=== PATIENT | female | born 1955 | race Caucasian/White ===

== ENCOUNTER → 2016-03-09 | Outpatient (CLI) | payer OTHER ==
--- NOTE | 2016-03-09 09:06 | MR ---
EXAMINATION TYPE: MR lumbar spine wo con DATE OF EXAM: 03/09/2016 8:53 AM COMPARISON: MRI lumbar spine March 30, 2015. Outside lumbar spine x-ray number 19/10/2015 HISTORY: Lumbago per order, pain in back going down rt leg per patient. TECHNIQUE: Multiplanar, multisequence imaging of the lumbar spine is performed without IV contrast. FINDINGS: Sagittal images of the lumbar spine show vertebral body heights and alignment to appear sat isfactory. Multilevel disc desiccation is redemonstrated. There is fairly moderate disc space narrowi ng with vacuum disc phenomenon at L2-L3 and L5-S1 level is redemonstrated. Posterior disc herniations are seen at L2-L3 and L5-S1 levels on sagittal images. Disc herniation L4-L5 level is less prominent versus prior on sagittal images. The conus medullaris is normal in position and signal ending at mid L1 vertebral body level. Vacuum disc phenomenon L3-L4 level is redemonstrated. There is moderate spu rring with heterogeneous increased T1 and T2 signals at L2-L3 level consistent with Modic type II deg enerative change redemonstrated. Additional mild multilevel anterior spurring is present. Axial images at the T12-L1 level redemonstrate mild broad disc bulge mildly effacing anterior thecal sac on axial image 28. There is mild ligamentum flavum hypertrophy bilaterally effacing the posterior lateral thecal sac on same image. No significant change from prior study is seen. Bilateral neural f oramina remain patent. Axial images at the L1-L2 level show mild facet degenerative changes and ligamentum flavum hypertroph y. There is mild broad disc bulge. Spinal canal is preserved and bilateral neural foramina are patent . No significant change from prior study is seen. Axial images at L2-L3 level show moderate broad disc bulge effacing anterior thecal sac. There is mil d facet degenerative changes and ligament flavum hypertrophy. There is moderate right and mild left-s ided neural foraminal narrowing at this level identified. No significant change from prior study is s een. Axial images at the L3-L4 level show mild facet degenerative changes bilaterally and mild broad disc bulge. Spinal canal is fairly well preserved. Bilateral neural foramina are mildly narrowed along the anterior inferior aspect. Axial images at the L4-L5 level show mild to moderate facet degenerative changes bilaterally. Spinal canal is preserved and bilateral neural foramina are patent. Previously visualized disc herniation is improved. Axial images at L5-S1 level show moderate left greater than right facet degenerative changes. There i s right paracentral disc protrusion seen. Spinal canal is preserved. There is moderate left greater t thomas right neural foraminal narrowing. Encroachment on both L5 nerves is difficult to exclude on axial image 4 as well as sagittal image 4 and 12 respectively. This is stable from prior. IMPRESSION: Multilevel degenerative changes in lumbar spine are redemonstrated, note is made of inter cristhian improvement in disc herniation L4-L5 level, other levels are fairly stable with most prominent fi ndings noted at L2-L3 and L5-S1 levels as detailed above.
== END | disposition home or self-care (01) ==
LOC: RADMRIMAIN 08:13
PROVIDERS: ATTEND Orthopaedic Surgery
DX: M51.27 Other intervertebral disc displacement, lumbosacral region (principal); M47.816 Spondylosis without myelopathy or radiculopathy, lumbar region
CPT/HCPCS: 72148

== ENCOUNTER → 2016-03-25 | Outpatient (CLI) | payer OTHER ==
[2016-03-19 14:34] VITALS: BMI 39.4
[2016-03-25 12:45] VITALS: BP 153/92; PULSE 103; RESP 18; TEMP 98
--- NOTE | 2016-03-25 14:54 | P.CONS ---
History of Present Illness - Reason for Consult Consult date: 03/25/16 - History of Present Illness This is the initial consultation for this 60 years old female with a chronic history of severe low back pain,, pain started more than 5 years ago but the intensity of the pain increased significantly over the last 2 years, and it is constant and increases with any activity mostly radiated to the posterior and lateral aspect of her right leg, she denies any motor or sensory deficit, he denies any fever or night sweats, and no change in the bowel movements or urination, she is able to ambulate on her own but this will increase her pain, pain increased with hyperextension and improved with leaning forward, and intensity of the pain interfering with her quality of life and activity of daily livings Past Medical History Past Medical History: GERD/Reflux, Hypertension, Osteoarthritis (OA), Sleep Apnea/CPAP/BIPAP Additional Past Medical History / Comment(s): SURGERY RECTIFIED THE SLEEP APNEA , Pain middle back down rt buttocks and down rt leg History of Any Multi-Drug Resistant Organisms: None Reported Past Surgical History: Back Surgery, Hysterectomy, Joint Replacement, Orthopedic Surgery Additional Past Surgical History / Comment(s): "SLEEP APNEA SURGERY". CERVICAL SURGERY(PLATE). ARTHO OF RIGHT SHOULDER (TENDON RELEASE) AND RIGHT KNEE, total rt hip Past Anesthesia/Blood Transfusion Reactions: No Reported Reaction Past Psychological History: Depression Smoking Status: Current every day smoker Past Alcohol Use History: Occasional Additional Past Alcohol Use History / Comment(s): SMOKED FOR 30 YRS. PPD: 1-3 CIGS/DAY. Past Drug Use History: None Reported - Past Family History Mother Family Medical History: Cancer, Deep Vein Thrombosis (DVT) Additional Family Medical History / Comment(s): colorectal cancer Medications and Allergies Home Medications Medication Instructions Recorded Confirmed Type Aspirin 81 mg PO DAILY 08/11/13 03/25/16 History Citalopram Hydrobromide [CeleXA] 10 mg PO QAM 08/11/13 03/25/16 History Losartan/Hydrochlorothiazide 1 tab PO QAM 08/11/13 03/25/16 History [Hyzaar 100-25 Tablet] Multivitamins, Thera [Multivitamin] 1 tab PO DAILY 08/12/15 03/25/16 History Pantoprazole [Protonix] 40 mg PO QAM 08/12/15 03/25/16 History Vitamin B Complex 1 cap PO DAILY 08/12/15 03/25/16 History Felodipine [Felodipine ER] 10 mg PO QAM 08/20/15 03/25/16 History Ibuprofen [Motrin] 800 mg PO Q8HR PRN 03/25/16 03/25/16 History Allergies Allergy/AdvReac Type Severity Reaction Status Date / Time No Known Allergies Allergy Verified 03/19/16 14:18 Physical Exam Vitals: Vital Signs Temp Pulse Resp BP Pulse Ox 03/25/16 12:30 98.0 F 103 H 18 153/92 103 H Social history : smoker , social ETOH , NO Illegal drugs use . Family history : positive for diabetes and back pain Review of Systems : 1- Constitutional : no chills , no fever , no night sweats , 2- Ears : no ear discharge , no change in hearing 3-Nose, Mouth ,Throat ; no bleeding gums, no sore throat , no epistaxis , 4-Cardiovascular : Denies chest pain, , no orthopnea , no palpitation 5-Respiratory : Denies cough , no dyspnea , no hemoptysis 6-Gastrointestinal :, no change in bowel habits , no coffee- ground emesis . 7-Genitourinary : No hematuria , no discharge , no incontinence, 8-Musculoskeletal : No gait dysfunction , report low back pain , 9- Neurological : no ataxia , no tremor , no sezure , 10-Psychatric , no suicidal ideation no hallucination 11- Endocrine : no cold intolerence , no polyuria , no polydypsia , 12-Hematologic : no easy bleeding , no easy brusing , 13-Allergic / immunology : no angioedema , no wheezing ,no allergic rhinitis 14-Integumentary : no brttle nails , no change hair / nails , no foot/leg ulcers . Physical Examinations : 1-Constitutional : Cooperative , not in acute distress . 2-HEENT : nech ; supple , no Lymphadenopathy , no Thyromegaly , eyes , no icterus, no photophobia . ENT : , normal oropharynx , no Thrush 3- Respiratory : Chest clear to auscultations Bilaterally , no wheezing . 4- Cardiovascular : regular rate and rhythem , S1 , S2 , no S3 , no S4. 5- Gastrointestinal: abdomen soft no tenderness , no organomegally . 6- Genitourinary : Defferred . 7-Integumentary : No cellulitis , no ulcers , normal skin turgor , no cyanotic . 8- neurologic : Cranial nerve II to XII intact , no focal neurological deffecit 9-psychatric : alert , oriented X 3 , appropriate affect , intact judgment and insight . 10-Lymphatic : no Lymphadenopathy. 11- musculoskeltal: normal gait , exams of the cervical spine = motor stregnth in the deltoid and biceps, normal right side , normal Left side . exams of the Lumber spine = moter stegnth lower extremities , thigh and legs 5/5 Right side , 5/5 Left side deep tendon reflexes : normal Knee Jerk , normal ankle Jerk positive lumber facet Loading Test Range of motion of the lumbar spine Flexion 60 degrees, extension 10 degrees strait leg raising test negative bilaterally Fabere test negative bilaterally Sever tenderness over the Sacroiliac joint on the R and L sides Results Comments: MRI lumbar spine done in 03/09/2016 , [facility]= multilevel lumbar facet arthropathy, and multilevel disc protrusion Assessment and Plan Plan: Assessment and plan = - Chronic low back pain secondary to , lumbar spondylosis with facet arthropathy without myelopathy , sacroiliiti The patient was counseled about risk of opioid use, psychological risk associated with opioids discussed with the patient, body mass index and exercise. Patient signed the narcotic agreement , and was orally counseled not to overuse , abuse , divert, or sell medications ,and take them as prescribed only , and the patient was counseled against driving and while you are using the narcotic medication also not to use alcohol or any illicit drugs and the patient verbalized understanding that lack of compliance and could result in failure to renew narcotics prescriptions and possible discharge from the clinic - diagnoses, prognosis, and treatment options including but not limited to physical therapy, surgical interventions, interventional therapies and medication management including narcotics and adjuvant medication were discussed with the patient and all questions answered to the patient's satisfaction. -medication refile =1-Ackworth 7.5/325 dispense 60 2- Motrin 800 mg every 8 hours dispense 90 -procedure= was scheduled patient to have diagnostic medial branch block lumbar area and a L3-4/L4-L5/L5-S1 and if she had a positive result then we will proceed with the radiofrequency ablation of the medial branch lumbar area, and if patient had bleeding resulting we have targeted the other etiology which is sacroiliac joint, then we will proceed with a sacroiliac joint steroid injection bilaterally Time with Patient: Greater than 30
== END | disposition home or self-care (01) ==
LOC: PNWHC3 12:21
PROVIDERS: ATTEND Specialist
DX: M47.816 Spondylosis without myelopathy or radiculopathy, lumbar region (principal); M46.96 Unspecified inflammatory spondylopathy, lumbar region; M46.1 Sacroiliitis, not elsewhere classified; M51.26 Other intervertebral disc displacement, lumbar region; G47.30 Sleep apnea, unspecified; Z99.89 Dependence on other enabling machines and devices; K21.9 Gastro-esophageal reflux disease without esophagitis; I10 Essential (primary) hypertension; M19.90 Unspecified osteoarthritis, unspecified site; F17.200 Nicotine dependence, unspecified, uncomplicated; Z79.899 Other long term (current) drug therapy
CPT/HCPCS: 99211

== ENCOUNTER 2016-05-12 07:55 | Day surgery (SDC) | payer OTHER ==
[2016-05-11 08:36] VITALS: BMI 37.8
[~2016-05-12 07:55] MED LIST: LACTATED RINGERS 1,000 ML IV SCH
[2016-05-12 08:32] VITALS: TEMP 98
[2016-05-12] MEDS ORDERED: MIDAZOLAM 2 MG/2 ML VIAL ONE (08:49)
[2016-05-12] MEDS ORDERED: fentaNYL (PF) 50 MCG/ML 2 ML AMP ONE (08:49)
[2016-05-12] MEDS ORDERED: TRIAMCINOLONE ACETONIDE 40 MG/ML 1 ML VIAL ONE (08:49)
[2016-05-12] MEDS ORDERED: BUPIVACAINE (PF) 0.5% 30 ML VIAL ONE (08:49)
--- NOTE | 2016-05-12 09:21 | P.PCN ---
Date of Procedure: 05/12/16 Procedure(s) Performed: PREOPERATIVE DIAGNOSIS : 1- Lumbar spondylosis with Facet Arthropathy without myelopathy . 2-sacroiliitis POSTOPERATIVE DIAGNOSIS: 1- Lumbar spondylosis with Facet Arthropathy without myelopathy . 2- sacroiliitis PROCEDURE: Diagnostic bilateral L3 -4 , L4 -5 , and L5-S1 medial branch block under fluoroscopy ANESTHESIA: Local with 1% lidocaine; IV sedation with Versed 2 mg and Fentanyl 50 mcg. EBL: Minimal COMPLICATION: None. IV FLUIDS: 100 mL of normal saline. PROCEDURE INDICATION: Chronic low back pain secondary to Facet arthropathy unresponsive to conservative treatment. PROCEDURE DESCRIPTION: the patient was seen and identified in the preop holding area , risks and benefits and possible complications of the procedure and alternative were discussed with the patient, and the patient agreed to proceed with the procedure and signed the consent IV was started and vital signs monitored during the procedure and fluoroscopy was used to maximize the benefit and accuracy of the needle placement, and sedation was given to decrease patient anxiety, patient was taken to the procedure room and placed in prone position vital signs monitored in the back prepped with chlorhexidine X3 then under strict sterile technique using a right oblique fluoroscopy ,the junction of the transverse process and the superior articulating process of the right L3- 4 , L4- 5, and L5-S1 vertebra which corresponding to the fluoroscopy image of the eye of the Talha dog on the block side for the medial branches and subsequently , after local infiltration of skin and subcu tissuies with lidocaine 1% one mL at each level ,then 22- gauge Quincke-type 3.5 inches needles , 3 needle was used , each one of them placed at the junction of the base of the transverse process and the superior articular process at the appropriate level, and the needle was advanced until the periosteum contacted, needle placement confirmed with AP oblique and lateral view and after appropriate needle placement confirmed, and after negative aspiration for heme and CSF and there was no paresthesia 1-1/2 mL of Marcaine 0.5% mixed with 40 mg Kenalog , then half mL injected at each level after negative aspiration the needle subsequently removed and the same procedure repeated for the left side at left side at L3-4, L4- 5 and L5-S1 levels. At the end of the procedure and the needles removed and a bandage applied after the skin was cleaned the cleaning solution patient taken to recovery room in stable condition and monitors in the recovery room for 20-30 minutes and discharged home in stable condition after discharge criteria met and patient will follow up with the pain clinic in 2-4 weeks
[2016-05-12] MEDS ORDERED: IV FLUID CONTINUATION 1,000 ML IV ONE (09:28)
[2016-05-12 09:31] VITALS: RESP 18
--- NOTE | 2016-05-12 09:31 | FL ---
Fluoroscopy INDICATION: Pain FINDINGS: Fluoroscopy time: 7 seconds. Images obtained: 4. IMPRESSIONS: 1. Documentation of fluoroscopy.
[2016-05-12 09:46] VITALS: BP 123/81; PULSE 74
== END 2016-05-12 10:05 | disposition home or self-care (01) ==
LOC: ORPAIN 07:55
PROVIDERS: ATTEND Specialist
DX: G89.29 Other chronic pain (principal); M47.816 Spondylosis without myelopathy or radiculopathy, lumbar region; M46.1 Sacroiliitis, not elsewhere classified; M46.96 Unspecified inflammatory spondylopathy, lumbar region; I10 Essential (primary) hypertension; G47.33 Obstructive sleep apnea (adult) (pediatric)
CPT/HCPCS: 64493; 64494; 64495; 99152; J2250; J3301; J3010

== ENCOUNTER 2016-06-15 09:21 | Day surgery (SDC) | payer OTHER ==
[2016-06-11 14:42] VITALS: BMI 37.8
[2016-06-15 10:15] VITALS: RESP 16; TEMP 98.2
[2016-06-15] MEDS ORDERED: LIDOCAINE 1% 20 ML VIAL (10MG/ML) FOR IV START INTRADERMA ONE (10:28)
[2016-06-15] MEDS ORDERED: LACTATED RINGERS 1,000 ML IV SCH (10:30)
[2016-06-15] MEDS ORDERED: TRIAMCINOLONE ACETONIDE 40 MG/ML 1 ML VIAL ONE (10:34)
[2016-06-15] MEDS ORDERED: fentaNYL (PF) 50 MCG/ML 2 ML AMP ONE (10:34)
[2016-06-15] MEDS ORDERED: BUPIVACAINE (PF) 0.5% 30 ML VIAL ONE (10:34)
[2016-06-15] MEDS ORDERED: MIDAZOLAM 2 MG/2 ML VIAL ONE (10:34)
[2016-06-15] MEDS ORDERED: IV FLUID CONTINUATION 1,000 ML IV ONE (11:06)
--- NOTE | 2016-06-15 11:11 | FL ---
Fluoroscopy INDICATION: Pain FINDINGS: Fluoroscopy time: 23 seconds. Images obtained: 3. IMPRESSIONS: 1. Documentation of fluoroscopy.
--- NOTE | 2016-06-15 11:15 | P.PCN ---
Date of Procedure: 06/15/16 Surgeon: Keyshawn Richter Pathology: none sent Condition: stable Disposition: PACU Description of Procedure: PREOPERATIVE DIAGNOSIS: L3-L4, L4-L5, and L5-S1 spondylosis without myelopathy and facet arthropathy. POSTOPERATIVE DIAGNOSIS: L3-L4, L4-L5, and L5-S1 spondylosis without myelopathy and facet arthropathy. PROCEDURE DESCRIPTION: Patient presents for L3, L4 and L5 diagnostic medial branch blocks under fluoroscopic guidance. The procedure is performed using fluoroscopic guidance during needle placement to assure proper position and maximize safety. ANESTHESIA: Local with 1% lidocaine; conscious sedation EBL: Minimal PROCEDURE INDICATION: Patient with lumbar facet arthropathy signs and symptoms, here for diagnostic medial branch block. Pt does not take any blood thinning medications. Good relief for one week from MBB #1 done in April. PROCEDURE DESCRIPTION: The patient was seen and identified in the preoperative area. Risks, benefits, complications, and alternatives were discussed with the patient (including but not limited to incomplete pain relief, bleeding, infection, nerve damage, and allergies to medications), the patient agreed to proceed with the procedure and signed the consent after all questions were answered. Patient was taken to the OR and time out was completed to verify proper patient, position, laterality of pain, and allergies. Pt was placed in the prone position and a pillow was placed under the abdomen to reduce lumbar lordosis. The lumbosacral area was prepped and draped in the usual sterile fashion. Using oblique fluoroscopy, the eye of the "Talha dog" of right L4 vertebral body, which corresponds to the path of the medial branch originating from the level above, which is L3 in this case, was identified. Subsequently, a 22-gauge 3.5-inch spinal needle was inserted under fluoroscopic guidance toward the eye of the "Talha dog" of the right L4 vertebral body, corresponding to the junction of the superior articular process and the transverse process of the pedicle of the same level. After needle tip confirmation on lateral view and after negative aspiration for CSF and blood and without paresthesias, 1 mL of a 6 ml solution of 0.5% preservative-free bupivacaine and 40 mg Kenalog was injected. Subsequently the needle was withdrawn intact and the same procedure was repeated for the right L4, right L5, left L3, left L4, and left L5 medial branches which together with right L3 medial branch correspond to the sensory innervation of the bilateral L3-L4, L4-L5, and L5-S1 facet joints. Needle was withdrawn intact after each injection. At the end of the procedure, the skin was cleansed and bandages were applied. COMPLICATIONS: None. DISPOSITION/PLAN: The patient taken to the recovery area after the procedure in a stable condition for observation. Patient was reexamined prior to discharge and there were no issues. Patient was discharged home, accompanied by an adult, after meeting discharged criteria. Discharge instructions were give to the patient by the staff. Patient was specifically instructed not to drive today and to rest for the rest of the day. Patient will follow up for right lumbar RFA in 4-6 weeks if she gets good relief from this procedure. Consider using longer needles for RFA due to patient's large body habitus even though MBB was accomplished using 3.5-inch needles.
[2016-06-15 11:26] VITALS: BP 137/80; PULSE 75
== END 2016-06-15 11:55 | disposition home or self-care (01) ==
LOC: ORPAIN 09:21
PROVIDERS: ATTEND Anesthesiology
DX: G89.29 Other chronic pain (principal); M47.816 Spondylosis without myelopathy or radiculopathy, lumbar region; M46.96 Unspecified inflammatory spondylopathy, lumbar region; I10 Essential (primary) hypertension; F32.9 Major depressive disorder, single episode, unspecified; K21.9 Gastro-esophageal reflux disease without esophagitis; Z79.891 Long term (current) use of opiate analgesic; Z79.899 Other long term (current) drug therapy
CPT/HCPCS: 64493; 64494; 64495; 99152; J2250; J3301; J3010

== ENCOUNTER → 2016-07-17 | Outpatient (CLI) | payer OTHER ==
--- NOTE | 2016-07-21 09:39 | MM ---
Reason for exam: screening (asymptomatic). Last mammogram was performed 2 years and 6 months ago. History: Patient is postmenopausal. Benign excisional biopsy of the left breast. Physical Findings: A clinical breast exam by your physician is recommended on an annual basis and results should be correlated with mammographic findings. MG 3D Screening Mammo W/Cad Bilateral CC and MLO view(s) were taken. Prior study comparison: January 05, 2014, bilateral MG screening mammo w CAD. There are scattered fibroglandular densities. Scattered benign calcifications bilateral. No significant changes when compared with prior studies. ASSESSMENT: Benign, BI-RAD 2 RECOMMENDATION: Routine screening mammogram of both breasts in 1 year.
== END | disposition home or self-care (01) ==
LOC: RADMAMWWP 11:15
PROVIDERS: ATTEND Family Medicine
DX: Z12.31 Encounter for screening mammogram for malignant neoplasm of breast (principal)
CPT/HCPCS: 77063; G0202

== ENCOUNTER 2016-07-23 11:52 | Day surgery (SDC) | payer OTHER ==
[2016-07-20 11:38] VITALS: BMI 37.8
[2016-07-23 12:07] VITALS: TEMP 97.2
[2016-07-23] MEDS ORDERED: LIDOCAINE 1% 20 ML VIAL (10MG/ML) FOR IV START INTRADERMA ONE (12:08)
[2016-07-23] MEDS ORDERED: LACTATED RINGERS 1,000 ML IV ONE (12:08)
[2016-07-23] MEDS ORDERED: BUPIVACAINE (PF) 0.5% 30 ML VIAL ONE (12:26)
[2016-07-23] MEDS ORDERED: MIDAZOLAM 2 MG/2 ML VIAL ONE (12:26)
[2016-07-23] MEDS ORDERED: TRIAMCINOLONE ACETONIDE 40 MG/ML 1 ML VIAL ONE (12:26)
[2016-07-23] MEDS ORDERED: fentaNYL (PF) 50 MCG/ML 2 ML AMP ONE (12:26)
--- NOTE | 2016-07-23 13:09 | P.PCN ---
Date of Procedure: 07/23/16 Preoperative Diagnosis: Lumbar spondylosis without myelopathy Morbid obesity Postoperative Diagnosis: Same as above Procedure(s) Performed: Implants: Anesthesia: other (Moderate sedation) Surgeon: Mello Gallagher Pathology: none sent Condition: stable Disposition: PACU Indications for Procedure: Operative Findings: Description of Procedure: The patient was seen in the preop holding area consent was obtained then she was brought into the procedure room and placed in prone position. Skin was prepped with ChloraPrep and draped in a sterile manner. Lidocaine 1% was used to numb the skin up at the target points that were chosen as follows: For the L5 -S1 level which corresponds to the dorsal ramus of L5 the target point was the superior medial aspect of the sacral ala on the right side of the spine on the AP view of fluoroscopy. For the L2-L3 and L4 medial branches the target points were the connection between the transverse process and the superior to go process of L3-L4 and L5 vertebra respectively on the right oblique view of fluoroscopy. I used 18-gauge 100 mm in length with 10 mm curved active tip radiofrequency ablation needles for this procedure. AP, oblique, and lateral views of fluoroscopy were obtained to verify needle tipposition then motor stimulation showed only local twitches of these needles with no radiation of twitching to the right lower extremity. After that I prepared a solution of 3 MLS Marcaine 0.5% +40 mg of Kenalog. 1 mL of the solution was given in each needle. After that radiofrequency ablation started for 90 seconds at 80C, the needles then were withdrawn by 1 or 2 mm and the bevels turned 180 another session of ablation was then started for 90 seconds at 80C. Patient tolerated procedure well.
[2016-07-23] MEDS ORDERED: IV FLUID CONTINUATION 850 ML IV ONE (13:23)
[2016-07-23 13:29] VITALS: RESP 18
--- NOTE | 2016-07-23 13:32 | FL ---
EXAMINATION TYPE: FL guided pain mgmt statistic DATE OF EXAM: 07/23/2016 1:03 PM HISTORY: Pain 48 SEC FLUORO, 3 IMAGES SCANNED
[2016-07-23 13:38] VITALS: BP 127/77; PULSE 75
== END 2016-07-23 14:01 | disposition home or self-care (01) ==
LOC: ORPAIN 11:52
PROVIDERS: ATTEND Anesthesiology
DX: M47.816 Spondylosis without myelopathy or radiculopathy, lumbar region (principal); E66.01 Morbid (severe) obesity due to excess calories; Z68.37 Body mass index [BMI] 37.0-37.9, adult
CPT/HCPCS: 64635; 64636; 99152; 99153; J2250; J3301; J3010

== ENCOUNTER 2016-09-21 09:15 | Day surgery (SDC) | payer OTHER ==
[2016-09-16 11:50] VITALS: BMI 37.8
[2016-09-21 09:47] VITALS: RESP 16; TEMP 97.2
[2016-09-21] MEDS ORDERED: LIDOCAINE 1% 20 ML VIAL (10MG/ML) FOR IV START SQ ONE (09:58)
--- NOTE | 2016-09-21 10:47 | P.PCN ---
Date of Procedure: 09/21/16 Preoperative Diagnosis: Lumbar spondylosis without myelopathy Postoperative Diagnosis: Same as above Procedure(s) Performed: Left lumbar medial branch radiofrequency ablation under fluoroscopic guidance Implants: Anesthesia: other (Moderate sedation with IV fentanyl and Versed) Surgeon: Mello Gallagher Pathology: none sent Condition: stable Disposition: PACU Indications for Procedure: Operative Findings: Description of Procedure: The patient was seen in the preop holding area consent was obtained then she was brought into the procedure room and placed in prone position. Skin was prepped with ChloraPrep and draped in a sterile manner. Lidocaine 1% was used to numb the skin up at the target points that were chosen as follows: For the L5 -S1 level which corresponds to the dorsal ramus of L5 the target point was at the superior medial aspect of the sacral ala on the left side of the spine on the AP view of fluoroscopy, and for the L2, L3, and L4 medial branches the target points were the connection between the transverse process and the superior articular process of 3, L4, and L4 vertebra respectively on the left oblique view of fluoroscopy. I used 150 mm in length 18-gauge residency ablation needles for this procedure with 10 mm curved active tips. I tried to placed the active tips as parallel as possible to the medial branches tracks by going in a superior medial direction. AP, oblique, and lateral views of fluoroscopy were obtained to verify needle tip position then motor stimulation showed only local twitches of these needles with no radiation of twitching to the left lower extremity after that I prepared a solution of 3 MLS Marcaine 0.5 % +40 mg of Kenalog and 1 mL of the solution was given in each needle. Then radiofrequency ablation started for 90 seconds at 80C and after the first session was done the needles were withdrawn by 1 or 2 mm and the bevels were turned 180 and another session of ablation was started for 90 seconds at 80C. Patient tolerated procedure well.
[2016-09-21] MEDS ORDERED: IV FLUID CONTINUATION 1,000 ML IV ONE ×2 (10:51)
--- NOTE | 2016-09-21 10:51 | FL ---
EXAMINATION TYPE: FL guided pain mgmt statistic DATE OF EXAM: 09/21/2016 CLINICAL HISTORY: Low back pain. TECHNIQUE: Fluoroscopy. COMPARISON: None. FINDINGS: Fluoroscopic guidance was provided during pain relief procedure performed by Dr. Gallagher . A total of 38 seconds of fluoroscopic time was utilized during the procedure and two spot images ar e acquired. Images acquired shows needle localization at multiple levels in the lower lumbar spine a nd upper sacrum. IMPRESSION: As Above.
[2016-09-21 11:10] VITALS: BP 129/83; PULSE 75
== END 2016-09-21 11:24 | disposition home or self-care (01) ==
LOC: ORPAIN 09:15
PROVIDERS: ATTEND Anesthesiology
DX: M47.816 Spondylosis without myelopathy or radiculopathy, lumbar region (principal); I10 Essential (primary) hypertension
CPT/HCPCS: 64635; 64636; 99152; 99153; J2250; J3301; J3010

== ENCOUNTER → 2016-11-18 | Outpatient (CLI) | payer OTHER ==
[2016-11-18 14:47] VITALS: BP 140/76; PULSE 93; RESP 20
--- NOTE | 2016-11-18 14:54 | P.PN ---
Progress Note - Text Patient returns for followup for chronic back pain with radiation to hips and legs. Patient recently underwent bilateral lumbar RFA, which has provided some relief for interval since procedure, but patient still has numbness/tingling in bilateral lower extremities, worst in RLE in lateral aspect of lower leg and ankle. Patient continues on occasional [place] pill for pain with good relief. Patient denies adverse drug effects from medications. Today, pt denies new- onset weakness, bowel/bladder incontinence, or any other signs or symptoms of cauda equina syndrome. There are no signs of acute intoxication, and no indications of medication diversion or overuse. In addition to above, 13-point review of systems is also negative for chest pain , shortness of breath, changes in vision, changes in hearing, new onset weakness , abdominal pain, diarrhea, extreme fatigue, malaise, fever, skin changes, homicidal or suicidal ideation, or bowel or bladder incontinence. Vital Signs: Reviewed in EMR Gen: WDWN, AAOx3, NAD HEENT: NCAT, EOMI, hearing grossly normal Pulm: resp unlabored Abd: soft, NT, ND Neck: supple, trachea midline ROM in flexion lumbar spine: full ROM in extension lumbar spine: reduced Lumbar paravertebral tenderness: + Facet loading: + L > R SI joint tenderness: + L > R Jamie's test: + L > R Straight leg raise: + RLE at 10 degrees Neuro: CN II-XII grossly intact, muscle strength lower extremities PRESERVED Imaging: Reviewed in EMR Assessment: 1. lumbar spondylosis without myelopathy 2. SIJ dysfunction 3. chronic pain syndrome 4. lumbar neural foraminal stenosis Plan: 1. Explanation: Opioid and psychological risk scores were reviewed. Diagnoses , prognoses, and multiple treatment options including but not limited to physical therapy, interventional therapies, adjuvant medical therapies, narcotic medication therapies, and surgery were discussed with the patient and all questions were answered to the patient's satisfaction. 2. Opioid agreement: Patient has previously signed narcotic agreement, and was orally counseled to not overuse, abuse, divert, or cell medications, and to take them as prescribed by only 1 healthcare provider. The patient was also counseled to store opioid medications in a safe and preferably locked location. Patient was also counseled against driving or operating heavy equipment while using narcotic medications and also to not use alcohol or any illicit or recreational drugs. The patient verbalized understanding that lack of compliance with any of the above and likely result in failure to renew narcotic prescriptions, possible discharge from the clinic, and possible legal ramifications thereafter if indicated. 3. Counseling: The patient was counseled extensively on BODY MASS INDEX, EXERCISE. Specifically, the patient was instructed regarding the importance of weight control, and exercise in the context of both chronic pain and overall health. 4. Procedures: LESI series L5-S1 right paramedian if possible 5. Consultations: None 6. Investigations: None 7. Medications: [place] 7.5/325 #60 with no refill (two months' supply); Motrin 800 mg #60 with one refill 8. Disposition: f/u for re-eval in 8 weeks PQRS measures: 1-Patient's medications are documented in the chart. 2-Tobacco use is negative 3-Patient has not had a pneumococcal vaccine. 4-Advanced care planning discussed, patient unable to give. 5-Opioid contract signed with the patient. 6-Pain positive, follow-up visit or procedure scheduled 7-Patient's blood pressure measured and documented, and patient will follow up with the primary care due to hypertension. 8-Patient's weight was measured, and body mass index ABOVE the normal limits, and counseling was done. Patient instructed to follow up with PCP. 9-Patient WAS NOT identified as an unhealthy alcohol user.
== END | disposition home or self-care (01) ==
LOC: PNWHC3 14:13
PROVIDERS: ATTEND Anesthesiology
DX: M99.73 Connective tissue and disc stenosis of intervertebral foramina of lumbar region (principal); M47.816 Spondylosis without myelopathy or radiculopathy, lumbar region; M53.3 Sacrococcygeal disorders, not elsewhere classified; G89.4 Chronic pain syndrome
CPT/HCPCS: 99211

== ENCOUNTER 2016-12-10 08:39 | Day surgery (SDC) | payer OTHER ==
[2016-12-07 13:52] VITALS: BMI 39.4
[2016-12-10 09:24] VITALS: TEMP 98
--- NOTE | 2016-12-10 10:43 | P.PCN ---
Date of Procedure: 12/10/16 Procedure(s) Performed: PREOPERATIVE DIAGNOSIS: 1- Lumbar foraminal stenosis 2-Lumbar spondylosis with facet arthropathy without myelopathy. POSTOPERATIVE DIAGNOSIS: 1-Lumber foraminal stenosis 2-Lumbar spondylosis with Facet arthropathy without myelopathy. PROCEDURE. 1. Lumbar epidural steroid injection under fluoroscopic guidance at the L5-S1 level. 2. Lumbar epidurogram. ANESTHESIA: Local with 1% lidocaine 3 ml and IV sedation with Versed 2 mg , and fentanyle 100 Mcg EBL: Minimal PROCEDURE INDICATION: The patient with low back pain and radiculitis symptoms unresponsive to conservative treatment. Fluoroscopy was used to optimize visualization of the needle placement and to maximize safety. PROCEDURE DESCRIPTION / TECHNIQUE: The patient was seen and identified in the preoperative area. Risks, benefits , complications including but not limited to infections ,bleeding ,allergic reaction to the medications ,nerve damage and not complete pain releife , and alternatives were discussed with the patient. The patient agreed to proceed with the procedure and signed the consent. IV was started, and vital signs were stable. Patient was taken to the OR and time out was completed. The patient was placed in the prone position on procedure table and a pillow was placed under the abdomen to reduce lumbar lordosis. The lumbosacral area was prepped and draped in the usual sterile fashion.ere closely monitored during the procedure. Conscious sedation was used during the procedure to decrease patients anxiety. Vital signs was monitered during the entire procedure. Using anterior-posterior fluoroscopy, the L5-S1 interlaminar space was identified and the skin over this site was marked and then infiltrated with 1% lidocaine subcutaneously. Subsequently, a 18 -gauge Tuohy epidural needle was inserted and advanced toward the epidural space using the ``Loss of resistance technique and guided by AP and lateral fluoroscopy. The correct needle position in the epidural space was verified with the injection of 2 mL of the water soluble contrast dye Omnipaque 180 contrast and observing an excellent epidurogram with the epidural spread of the dye, after negative aspiration for blood and CSF and in the absence of paresthesias. Again after negative aspiration, a 6 ml mixture containing 20 mg of Dexamethasone and 2 ml of preservative free Normal Saline, and 2 ml of preservative free lidocaine 1% solution was injected and a washout of epidurogram was seen. Needle was withdrawn intact, skin was cleansed, and bandages were applied. COMPLICATIONS: None DISPOSITION / PLANS: The patient was placed in a supine position and transferred to the recovery area in a stable condition for observation. There was no evidence of lower extremity motor or sensory deficit after the procedure. Patient was discharged from the recovery room after meeting discharge criteria. Home discharge instructions were given to the patient by the staff. The patient was reexamined prior to discharge. The patient will schedule a follow up in the clinic in 2-4 weeks.
[2016-12-10] MEDS ORDERED: IV FLUID CONTINUATION 1,000 ML IV ONE (10:49)
[2016-12-10 10:51] VITALS: PULSE 75
--- NOTE | 2016-12-10 11:00 | FL ---
EXAMINATION TYPE: FL guided pain mgmt statistic DATE OF EXAM: 12/10/2016 COMPARISON: NONE HISTORY: Back pain TECHNIQUE: Fluoroscopy. FINDINGS/IMPRESSION: Fluoroscopic guidance was provided during procedure performed by Dr. Ortiz. A total of 6 seconds of fluoroscopic time was utilized during the procedure and 1 spot image was acq uired.
[2016-12-10 11:07] VITALS: BP 131/84; RESP 18
== END 2016-12-10 11:22 | disposition home or self-care (01) ==
LOC: ORPAIN 08:39
DX: M48.061 Spinal stenosis, lumbar region without neurogenic claudication (principal); M47.26 Other spondylosis with radiculopathy, lumbar region; M46.96 Unspecified inflammatory spondylopathy, lumbar region
CPT/HCPCS: 62323; J2250; J1100; Q9965; J3010; 99152

== ENCOUNTER 2017-01-14 09:48 | Day surgery (SDC) | payer OTHER ==
[2017-01-11 17:20] VITALS: BMI 39.4
[2017-01-14 10:39] VITALS: TEMP 99.1
[2017-01-14] MEDS ORDERED: LIDOCAINE 1% 20 ML VIAL (10MG/ML) FOR IV START INTRADERMA ONE (10:39)
--- NOTE | 2017-01-14 10:57 | P.PCN ---
Date of Procedure: 01/14/17 Procedure(s) Performed: PREOPERATIVE DIAGNOSIS: 1- Lumbar Degenerative Disc Diseases 2-Lumbar spondylosis with Facet arthropathy without myelopathy. 3-lumbar herniated disc disease POSTOPERATIVE DIAGNOSIS: 1-Lumber Degenerative Disc Diseases 2-Lumbar spondylosis with Facet arthropathy without myelopathy. 3-lumbar herniated disc disease PROCEDURE 1. Lumbar epidural steroid injection under fluoroscopic guidance at the L5-S1 level. ( left paramedian approach ) 2. Lumbar epidurogram. ANESTHESIA: Local with 1% lidocaine 3 ml and IV sedation with Versed 2 mg , and fentanyle 100 Mcg EBL: Minimal PROCEDURE INDICATION: The patient with low back pain and radiculitis symptoms unresponsive to conservative treatment. Fluoroscopy was used to optimize visualization of the needle placement and to maximize safety. PROCEDURE DESCRIPTION / TECHNIQUE: The patient was seen and identified in the preoperative area. Risks, benefits , complications including but not limited to infections ,bleeding ,allergic reaction to the medications ,nerve damage and not complete pain releife , and alternatives were discussed with the patient. The patient agreed to proceed with the procedure and signed the consent. IV was started, and vital signs were stable. Patient was taken to the OR and time out was completed. The patient was placed in the prone position on procedure table and a pillow was placed under the abdomen to reduce lumbar lordosis. The lumbosacral area was prepped and draped in the usual sterile fashion.ere closely monitored during the procedure. Conscious sedation was used during the procedure to decrease patients anxiety. Vital signs was monitered during the entire procedure. Using anterior-posterior fluoroscopy, the L5-S1 interlaminar space was identified and the skin over this site was marked and then infiltrated with 1% lidocaine subcutaneously. Subsequently, a 20-gauge Tuohy epidural needle was inserted and advanced toward the epidural space using the ``Loss of resistance technique and guided by AP and lateral fluoroscopy. The correct needle position in the epidural space was verified with the injection of 2 mL of the water soluble contrast dye Omnipaque 180 contrast and observing an excellent epidurogram with the epidural spread of the dye, after negative aspiration for blood and CSF and in the absence of paresthesias. Again after negative aspiration, a 6 ml mixture containing 20 mg of Dexamethasone and 2 ml of preservative free Normal Saline, and 2 ml of preservative free lidocaine 1% solution was injected and a washout of epidurogram was seen. Needle was withdrawn intact, skin was cleansed, and bandages were applied. COMPLICATIONS: None DISPOSITION / PLANS: The patient was placed in a supine position and transferred to the recovery area in a stable condition for observation. There was no evidence of lower extremity motor or sensory deficit after the procedure. Patient was discharged from the recovery room after meeting discharge criteria. Home discharge instructions were given to the patient by the staff. The patient was reexamined prior to discharge. The patient will schedule a follow up in the clinic in 2-4 weeks.
--- NOTE | 2017-01-14 11:10 | FL ---
Fluoroscopy INDICATION: Pain FINDINGS: Fluoroscopy time: 3 seconds. Images obtained: 1. IMPRESSIONS: 1. Documentation of fluoroscopy.
[2017-01-14] MEDS ORDERED: IV FLUID CONTINUATION 1,000 ML IV ONE (11:15)
[2017-01-14 11:22] VITALS: RESP 18
[2017-01-14 11:37] VITALS: BP 117/71; PULSE 84
== END 2017-01-14 11:49 | disposition home or self-care (01) ==
LOC: ORPAIN 09:48
PROVIDERS: ATTEND Specialist
DX: M51.36 Other intervertebral disc degeneration, lumbar region (principal); M47.816 Spondylosis without myelopathy or radiculopathy, lumbar region; M46.96 Unspecified inflammatory spondylopathy, lumbar region; M51.16 Intervertebral disc disorders with radiculopathy, lumbar region; I10 Essential (primary) hypertension; K21.9 Gastro-esophageal reflux disease without esophagitis
CPT/HCPCS: 62323; J2250; J1100; Q9965; J3010

== ENCOUNTER → 2017-02-15 | Outpatient (CLI) | payer OTHER ==
[2017-02-15 14:04] VITALS: BP 134/96; RESP 18
--- NOTE | 2017-02-15 14:26 | P.PN ---
Progress Note - Text Progress Note Date: 02/15/17 This is a 61-year-old female with lower back pain and radiation to both legs more towards the left side down to the left ankle with numbness and tingling in no specific radicular distribution. The patient's pain today is 2 out of 6 and it has improved after 2 lumbar epidural steroid injections. Patient is planning to leave to [place] a few weeks and she would like to have another injection in her lower back. She is alert oriented 3 in no apparent distress. She denies any changes or new symptoms since last time we saw her. He scores her pain today as 2 out of 10 her pain gets worse when she stands up for a short period of time. She uses [place] sparingly and the last prescription for 60 pills of [place] lasted her for 3 months. She does not show any drug-seeking behavior and she does not show any oversedation symptoms. Today I will schedule the patient to have lumbar epidural steroid injection under fluoroscopic guidance and also give her prescription for [place] 10 mg #60 pills.
== END | disposition home or self-care (01) ==
LOC: PNWHC3 13:27
PROVIDERS: ATTEND Anesthesiology
DX: M54.41 Lumbago with sciatica, right side (principal); M54.42 Lumbago with sciatica, left side; R20.0 Anesthesia of skin; R20.2 Paresthesia of skin; Z79.891 Long term (current) use of opiate analgesic
CPT/HCPCS: 99211

== ENCOUNTER → 2017-05-11 | Outpatient (CLI) | payer OTHER ==
[2017-05-11 12:25] VITALS: BP 148/83; PULSE 97; RESP 18
--- NOTE | 2017-05-11 12:49 | P.PN ---
Subjective Progress Note Date: 05/11/17 Principal diagnosis: Lumbar spondylosis, radiculopathy, right hip pain The patient is a 61-year-old lady who is morbidly obese with increasing lower back and right hip pain since her hip replacement. I will also [facility] surgeon egan to our clinic for pain management after he ruled out any complications from her hip surgery. The patient denies any bowel or bladder dysfunction. The pain prevents her from falling asleep but once she is asleep but does not wake her up at night. She denies any weight loss recently. By physical exam she is alert oriented 3 in no apparent distress however she became emotional when she was picking to me what her pain Straight leg raising test negative bilaterally She has significant tenderness on the lumbar paravertebral area more on the right side than the left side, mild tenderness around the right sacroiliac joint , Neuro exam of the lower extremities showed normal and symmetrical muscle strength absent right knee reflex and absent ankle reflexes bilaterally and normal left knee reflex. The patient has lumbar stenosis to and it might be contributing to her pain. I think the patient may benefit from getting lumbar epidural steroid injection at the L through L3 or L3 4 levels in the right paramedian approach and also she might be a candidate for lumbar medial branch block in the future. The patient uses [place] 7.5 mg sparingly usually once a day. I'll give her prescription for [place] 7.5 mg #60. Objective - Vital Signs Vital signs: Vital Signs Temp Pulse 97 05/11/17 12:08 Resp 18 05/11/17 12:08 BP 148/83 05/11/17 12:08 Pulse Ox 96 05/11/17 12:08 Intake & Output 05/10/17 05/11/17 05/11/17 18:59 06:59 18:59 Weight 104.326 kg Assessment and Plan Plan: Morbid obesity Right hip pain status post hip replacement Lumbar spondylosis without myelopathy Right lumbar radiculopathy Lumbar stenosis I will schedule the patient to have lumbar epidural steroid injection under fluoroscopic guidance at the L2-3 or L 3-4 levels in the right paramedian approach. [place] 7.5 mg will be continued I will give her 60 pills.
== END | disposition home or self-care (01) ==
LOC: PNWHC3 11:59
PROVIDERS: ATTEND Anesthesiology
DX: M48.061 Spinal stenosis, lumbar region without neurogenic claudication (principal); M47.26 Other spondylosis with radiculopathy, lumbar region; M25.551 Pain in right hip; E66.01 Morbid (severe) obesity due to excess calories; Z96.641 Presence of right artificial hip joint; Z79.891 Long term (current) use of opiate analgesic; Z68.39 Body mass index [BMI] 39.0-39.9, adult
CPT/HCPCS: 99211

== ENCOUNTER 2017-06-07 06:38 | Day surgery (SDC) | payer OTHER ==
[2017-06-02 09:05] VITALS: BMI 39.4
[2017-06-07 07:14] VITALS: RESP 18; TEMP 98
[2017-06-07] MEDS ORDERED: LIDOCAINE 1% 20 ML VIAL (10MG/ML) FOR IV START INTRADERMA ONE (07:14)
[2017-06-07] MEDS ORDERED: LACTATED RINGERS 1,000 ML IV ONE (07:14)
--- NOTE | 2017-06-07 08:06 | P.PCN ---
Date of Procedure: 06/07/17 Preoperative Diagnosis: Lumbar Radiculopathy Postoperative Diagnosis: Lumbar Radiculopathy Surgeon: William Ashby Condition: stable Disposition: PACU Description of Procedure: PREOPERATIVE DIAGNOSIS: 1- Lumbar Degenerative Disc Diseases 2-Lumbar spondylosis with Facet arthropathy without myelopathy. 3-lumbar herniated disc disease POSTOPERATIVE DIAGNOSIS: 1-Lumber Degenerative Disc Diseases 2-Lumbar spondylosis with Facet arthropathy without myelopathy. 3-lumbar herniated disc disease PROCEDURE 1. Lumbar epidural steroid injection under fluoroscopic guidance at the L5-S1 level. ( Right paramedian approach ) 2. Lumbar epidurogram. ANESTHESIA: Local with 1% lidocaine 3 ml and IV sedation with Versed 2 mg , and fentanyle 100 Mcg EBL: Minimal PROCEDURE INDICATION: The patient with low back pain and radiculitis symptoms unresponsive to conservative treatment. Fluoroscopy was used to optimize visualization of the needle placement and to maximize safety. PROCEDURE DESCRIPTION / TECHNIQUE: The patient was seen and identified in the preoperative area. Risks, benefits , complications including but not limited to infections ,bleeding ,allergic reaction to the medications ,nerve damage and not complete pain releife , and alternatives were discussed with the patient. The patient agreed to proceed with the procedure and signed the consent. IV was started, and vital signs were stable. Patient was taken to the OR and time out was completed. The patient was placed in the prone position on procedure table and a pillow was placed under the abdomen to reduce lumbar lordosis. The lumbosacral area was prepped and draped in the usual sterile fashion.ere closely monitored during the procedure. Conscious sedation was used during the procedure to decrease patients anxiety. Vital signs was monitered during the entire procedure. Using anterior-posterior fluoroscopy, the L5-S1 interlaminar space was identified and the skin over this site was marked and then infiltrated with 1% lidocaine subcutaneously. Subsequently, a 20-gauge Tuohy epidural needle was inserted and advanced toward the epidural space using the ``Loss of resistance technique and guided by AP and lateral fluoroscopy. The correct needle position in the epidural space was verified with the injection of 2 mL of the water soluble contrast dye Omnipaque 180 contrast and observing an excellent epidurogram with the epidural spread of the dye, after negative aspiration for blood and CSF and in the absence of paresthesias. Again after negative aspiration, a 6 ml mixture containing 40 mg Kenalog and 4 ml of preservative free Normal Saline was injected and a washout of epidurogram was seen. Needle was withdrawn intact, skin was cleansed, and bandages were applied. COMPLICATIONS: None DISPOSITION / PLANS: The patient was placed in a supine position and transferred to the recovery area in a stable condition for observation. There was no evidence of lower extremity motor or sensory deficit after the procedure. Patient was discharged from the recovery room after meeting discharge criteria. Home discharge instructions were given to the patient by the staff. The patient was reexamined prior to discharge. The patient will schedule a follow up in the clinic in 2-4 weeks.
[2017-06-07] MEDS ORDERED: IV FLUID CONTINUATION 700 ML IV ONE (08:38)
[2017-06-07 09:02] VITALS: BP 130/95; PULSE 83
--- NOTE | 2017-06-07 10:39 | FL ---
Fluoroscopy HISTORY: Pain 10 seconds fluoroscopy time supplied to the referring clinician. 2 intraoperative C-arm images docum ent the procedure. See dictated report from anesthesia.
== END 2017-06-07 09:21 | disposition home or self-care (01) ==
LOC: ORPAIN 06:38
PROVIDERS: ATTEND Anesthesiology
DX: M51.16 Intervertebral disc disorders with radiculopathy, lumbar region (principal); M47.816 Spondylosis without myelopathy or radiculopathy, lumbar region
CPT/HCPCS: 62323; J2250; J3301; J3010; Q9966

== ENCOUNTER → 2017-07-05 | Outpatient (CLI) | payer OTHER ==
[2017-07-05 12:11] VITALS: BP 117/72; PULSE 91; RESP 16
--- NOTE | 2017-07-05 12:43 | P.PN ---
Progress Note - Text Progress Note Date: 07/05/17 Patient returns for followup for chronic back pain with radiation to hips and legs. Patient recently underwent LESI x 1, which improved RLE pain and numbness almost completely for 11-12 days. Patient continues on occasional [place] pill for pain with good relief. Patient denies adverse drug effects from medications. Today, pt denies new-onset weakness, bowel/bladder incontinence, or any other signs or symptoms of cauda equina syndrome. There are no signs of acute intoxication, and no indications of medication diversion or overuse. In addition to above, 13-point review of systems is also negative for chest pain , shortness of breath, changes in vision, changes in hearing, new onset weakness , abdominal pain, diarrhea, extreme fatigue, malaise, fever, skin changes, homicidal or suicidal ideation, or bowel or bladder incontinence. Vital Signs: Reviewed in EMR Gen: WDWN, AAOx3, NAD HEENT: NCAT, EOMI, hearing grossly normal Pulm: resp unlabored Abd: soft, NT, ND Neck: supple, trachea midline ROM in flexion lumbar spine: full ROM in extension lumbar spine: reduced Lumbar paravertebral tenderness: + Facet loading: + L > R SI joint tenderness: + R > L Jamie's test: +R > L Straight leg raise: + RLE at 5 degrees Neuro: CN II-XII grossly intact, muscle strength lower extremities PRESERVED Imaging: Reviewed in EMR Assessment: 1. lumbar spondylosis without myelopathy 2. SIJ dysfunction 3. chronic pain syndrome 4. lumbar neural foraminal stenosis Plan: 1. Explanation: Opioid and psychological risk scores were reviewed. Diagnoses , prognoses, and multiple treatment options including but not limited to physical therapy, interventional therapies, adjuvant medical therapies, narcotic medication therapies, and surgery were discussed with the patient and all questions were answered to the patient's satisfaction. 2. Opioid agreement: Patient has previously signed narcotic agreement, and was orally counseled to not overuse, abuse, divert, or cell medications, and to take them as prescribed by only 1 healthcare provider. The patient was also counseled to store opioid medications in a safe and preferably locked location. Patient was also counseled against driving or operating heavy equipment while using narcotic medications and also to not use alcohol or any illicit or recreational drugs. The patient verbalized understanding that lack of compliance with any of the above and likely result in failure to renew narcotic prescriptions, possible discharge from the clinic, and possible legal ramifications thereafter if indicated. 3. Counseling: The patient was counseled extensively on BODY MASS INDEX, EXERCISE. Specifically, the patient was instructed regarding the importance of weight control, and exercise in the context of both chronic pain and overall health. 4. Procedures: LESI series L5-S1 RIGHT paramedian if possible 5. Consultations: None 6. Investigations: UDS today 7. Medications: [place] 7.5/325 #60 (three months' supply for this patient) 8. MME/day: < 10 9. Disposition: f/u for procedure as scheduled; plan to complete full series of three LESIs as patient had complete relief of right leg pain after first procedure. If relief still limited, can consider SCS in future. PQRS measures: 1-Patient's medications are documented in the chart. 2-Tobacco use is negative 3-Patient has not had a pneumococcal vaccine. 4-Advanced care planning discussed, patient unable to give. 5-Opioid contract signed with the patient. 6-Pain positive, follow-up visit or procedure scheduled 7-Patient's blood pressure measured and documented, and patient will follow up with the primary care due to hypertension. 8-Patient's weight was measured, and body mass index ABOVE the normal limits, and counseling was done. Patient instructed to follow up with PCP. 9-Patient WAS NOT identified as an unhealthy alcohol user.
== END | disposition home or self-care (01) ==
LOC: PNWHC3 11:47
PROVIDERS: ATTEND Anesthesiology
DX: G89.4 Chronic pain syndrome (principal); M99.73 Connective tissue and disc stenosis of intervertebral foramina of lumbar region; M47.816 Spondylosis without myelopathy or radiculopathy, lumbar region; M53.3 Sacrococcygeal disorders, not elsewhere classified; Z79.899 Other long term (current) drug therapy
CPT/HCPCS: 80307; 80356; 80364; 99211

== ENCOUNTER → 2017-08-30 | Outpatient (CLI) | payer OTHER ==
[2017-08-30 13:24] VITALS: BP 132/79; PULSE 74; RESP 16
--- NOTE | 2017-08-30 21:53 | P.PAINPG ---
Subjective Progress Note Date: 08/30/17 This is follow-up visit for this patient with a history of severe and chronic low back pain secondary to lumbar degenerative disc diseases, lumbar herniated disc disease , lumbar spondylosis with facet arthropathy, We have done interventional pain procedures lumbar epidural steroid injection , she gets good pain relief for 2-3 weeks after each epidural injection Patients currently on Reynolds 7.5/325 every 12 hours and Motrin 800 mg twice a day Patient denies any side effects of the medication, denies excessive drowsiness or sleepiness, denies suicidal ideation, and reports that the current pain medication is helping to control the pain ,and improve activity of daily living Patient denies any motor or sensory deficit , patient denies any fever or night sweats, denies any change in the bowel movements or urination, is currently complaining of severe low back pain mainly in the right buttock area with radiation to the buttock Physical Examinations : 1-Constitutional : Cooperative , not in acute distress . 2-HEENT : nech ; supple , no Lymphadenopathy , no Thyromegaly , normal thyroid size . eyes : no ptosis , no icterus, no photophobia . ENT : normal of hearing , normal oropharynx , no Thrush . 3- Respiratory : Chest clear to auscultations Bilaterally , no wheezing , no Rhonchi . 4- Cardiovascular : regular rate and rhythem , S1 , S2 , no S3 , no S4. 5- Gastrointestinal : abdomen soft no tenderness , bowel sounds positive all four quadrents , no organomegally . 6- Genitourinary : Defferred . 7- neurologic: Cranial nerve II to XII intact , no focal neurological deffecit . 8- Psychatric: alert , oriented X 3 , appropriate affect , intact judgment and insight . 9- Lymphatic : no Lymphadenopathy . 10- Musculoskeltal : exams of the cervical spine = motor strength normal bilateral upper extremities exams of the Lumber spine =motor strength lower extremities ,thigh and legs .5/5 deep tendon reflexes : normal Knee Jerk , normal ankle Jerk . lumber facet Loading Test positive strait leg raising test positive at 30 degree , RT ,LT , Fabere test positive RT and positive LT . Range of motion: Range of motion in flexion of the lumbar spine 30 degrees Range of motion range of motion of extension of the lumbar spine 10 Sever tenderness over the Sacroiliac joint on the Right , Assessment and plan = Chronic low back pain secondary to lumbar degenerative disc disease , lumbar spondylosis with facet arthropathy without myelopathy , lumbar herniated disc disease Acute right sacroiliitis chronic and current use of high-risk medication (Opioids). The patient was counseled about risk of opioid use, psychological risk associated with opioids and was orally counseled to not overuse , divert,or sell dictations to take medications as prescribed only , and to restore medication in safe location , the patient counseled against driving while using narcotic medications , and also not to use alcohol or any illicit recreational drugs, patient's verbalized understanding that the lack of compliance will result in failure to renew narcotic prescription and possible discharge from the clinic - diagnoses, prognosis, and treatment options including but not limited to physical therapy, surgical interventions, interventional therapies , and medication management including narcotics and adjuvant medication were discussed with the patient and all the questions answered Prescription refill for Reynolds 7.5/325 every 12 hours dispense 60, Motrin 800 mg twice a day dispense 60 She could benefit from right-sided sacroiliac joint steroid injection under fluoroscopy guidance Objective - Vital Signs Vital signs: Vital Signs Temp Pulse 74 08/30/17 13:13 Resp 16 08/30/17 13:13 BP 132/79 08/30/17 13:13 Pulse Ox 96 08/30/17 13:13 Intake & Output 08/30/17 08/30/17 08/31/17 06:59 18:59 06:59 Weight 104.326 kg PQRS Measure Charge Sheet Measure #130: Documentation of Current Meds in Medical Chart: Patient's medications documented in chart Measure #226: Tobacco Use: Screen & Cessation Intervention: Pt screened for tobacco use AND intervention given Measure #111: Pneumonia Vaccination: Pneumococcal vaccine administered or previously received Measure #47: Advance Care Plan: Advance care planning discussed & documented, plan or surrogate given Measure #412: Opioid Treatment Agreement: Documented signed opioid trtmnt agreemnt min once during opioid trtmnt Measure #408: Opioid Therapy Follow-up Evaluation: Patient had f/u eval minimum every 3 months during opioid therapy Measure #317: Preventitive Care & Scrn High Bld Press & F/U: Normal blood pressure, f/u not required Measure #128: Body Mass Index (BMI) Screening & Follow-up: BMI documented ABOVE normal parameters - f/u documented Measure #131: Pain Assessment & Follow-up: Pain positive & plan documented, Follow-up scheduled Measure #431: Unhealthy Alcohol Use Preventative Care & Scrn: Patient not identified as an unhealthy alcohol user PQRS Narrative: Smoking Status Current some day smoker Do You Want the Pneumonia No Vaccine AT THIS TIME? Narcotic Agreement Date Signed 07/05/17 Blood Pressure 132/79 Pain Intensity [Right Lower 3 Back] Hx Alcohol Use (MH) Yes Home Medications: Ambulatory Orders Aspirin 81 mg PO DAILY 08/11/13 Citalopram Hydrobromide [CeleXA] 10 mg PO QAM 08/11/13 Losartan/Hydrochlorothiazide [Hyzaar 100-25 Tablet] 1 tab PO QAM 08/11/13 Pantoprazole [Protonix] 40 mg PO QAM 08/12/15 Vitamin B Complex 1 cap PO DAILY 08/12/15 Multivitamin [Multivitamins Adult Gummies] 1 each PO DAILY 07/05/17 HYDROcodone/APAP 7.5-325MG [Reynolds 7.5-325] 1 each PO Q12HR PRN #60 tab 08/30/17 HYDROcodone/APAP 7.5-325MG [Reynolds 7.5-325] 1 tab PO Q12HR PRN 30 Days #60 tab Ibuprofen [Motrin] 800 mg PO BID PRN #60 tab 08/30/17 Controlled Substance Measures - Controlled Substance Measures Is patient prescribed a controlled substance at discharge?: Yes When asked, does pt state using other controlled substances?: Yes If prescribed controlled substance>3 days was MAPS reviewed?: Yes If Rx opioid, was Start Talking consent form obtained?: Yes If opioid is for acute pain is fill amount 7 days or less?: No Was information provided regarding opioid addiction?: Yes
== END | disposition home or self-care (01) ==
LOC: PNWHC3 12:19
PROVIDERS: ATTEND Specialist
DX: G89.29 Other chronic pain (principal); M51.26 Other intervertebral disc displacement, lumbar region; M51.36 Other intervertebral disc degeneration, lumbar region; M47.816 Spondylosis without myelopathy or radiculopathy, lumbar region; M46.1 Sacroiliitis, not elsewhere classified; M46.86 Other specified inflammatory spondylopathies, lumbar region; F17.200 Nicotine dependence, unspecified, uncomplicated; Z79.891 Long term (current) use of opiate analgesic; Z79.1 Long term (current) use of non-steroidal anti-inflammatories (NSAID); Z79.82 Long term (current) use of aspirin; Z79.899 Other long term (current) drug therapy
CPT/HCPCS: 99211

== ENCOUNTER → 2017-09-21 | Day surgery (SDC) | payer OTHER ==
[2017-09-16 10:36] VITALS: BMI 39.4
[~2017-09-21] MED LIST changes: +IV FLUID CONTINUATION 1,000 ML IV ONE; +LIDOCAINE 1% 20 ML VIAL (10MG/ML) FOR IV START INTRADERMA ONE
[2017-09-21 07:29] VITALS: RESP 16; TEMP 97.9
--- NOTE | 2017-09-21 07:50 | P.PCN ---
Date of Procedure: 09/21/17 Surgeon: Mello Gallagher Description of Procedure: Preoperative diagnoses= right sacroiliitis Postoperative diagnoses= same as preoperative diagnosis. Procedure= right sacroiliac joint steroid injection under fluoroscopic guidance. Anesthesia= conscious sedation with Versed and fentanyl and local infiltration with lidocaine 1% 4 ml Estimated blood loss=minimal. Procedure indication= the patient had a history of severe chronic low back pain , diagnosed with sacroiliitis and lumbar sacral facet arthropathy unresponsive to conservative treatment. Procedure description= the patient was seen and identified in the preoperative holding area, risks and benefits and alternative of the procedure and possible complications discussed with the patient, patient signed the consent. an IV was started, and vital signs were monitored and were stable throughout the procedure , patient was placed in the prone position or table and the lumbosacral area was prepped and draped with a sterile fashion, vital signs were closely monitored during the procedure.The right sacroiliac joint was identified on the AP view of fluoroscopy then the C-arm was tilted to the left oblique position to superimpose the anterior and posterior joint lines on each other and to have a unified joint line with the target point at the inferior one third of this line. I used 22-gauge 3-1/2 inch Quincke spinal needle for this procedure and after getting into the sacroiliac joint I injected 40 mg of Kenalog +2 MLS of Ropivacaine 0.5%. The patient returned to supine position after the back was cleaned and a Band- Aid applied, the patient transported to recovery room in stable condition and he was monitored for 30 minutes before he was discharged home and then patient was reexamined before going home and patient was discharged in stable condition and patient will follow up with the pain clinic in a few weeks
[2017-09-21 08:16] VITALS: BP 128/85; PULSE 71
--- NOTE | 2017-09-21 08:30 | FL ---
EXAMINATION TYPE: FL guided pain mgmt statistic DATE OF EXAM: 09/21/2017 HISTORY: Pain 3 seconds of fluoroscopic time was provided by the department of radiology. 1 image was provided f or documentation purposes.
== END | disposition home or self-care (01) ==
LOC: ORPAIN 06:06
PROVIDERS: ATTEND Anesthesiology
DX: G89.29 Other chronic pain (principal); M46.1 Sacroiliitis, not elsewhere classified; M51.26 Other intervertebral disc displacement, lumbar region; M51.36 Other intervertebral disc degeneration, lumbar region; M46.97 Unspecified inflammatory spondylopathy, lumbosacral region; I10 Essential (primary) hypertension; E66.01 Morbid (severe) obesity due to excess calories; Z68.39 Body mass index [BMI] 39.0-39.9, adult
CPT/HCPCS: 27096; J2250; J3301; J3010

== ENCOUNTER 2017-10-06 07:55 | Day surgery (SDC) | payer OTHER ==
[2017-09-29 10:08] VITALS: BMI 39.4
[2017-10-06] MEDS: LACTATED RINGERS 1,000 ML IV SCH ×2 (08:35→09:34)
[2017-10-06 08:49] VITALS: RESP 16; TEMP 99.3
[2017-10-06] MEDS ORDERED: LIDOCAINE 1% 20 ML VIAL (10MG/ML) FOR IV START INTRADERMA ONE (08:49)
[2017-10-06 08:58] LABS: Glucose,Whole Blood 109 mg/dL (75-99)
--- NOTE | 2017-10-06 09:52 | P.PCN ---
Date of Procedure: 10/06/17 Procedure(s) Performed: Preoperative diagnoses= 1-Right sacroiliitis. 2-lumbar spondylosis with lumbar facet arthropathy without myelopathy. Postoperative diagnoses= same as preoperative diagnosis. Procedure= Right sacroiliac joint steroid injection under fluoroscopic guidance. Anesthesia= moderate sedation with Versed 2 mg and fentanyl 50 micrograms and local infiltration with lidocaine 1% 2 ml Estimated blood loss=minimal. Procedure indication= the patient had a history of severe chronic low back pain , diagnosed with sacroiliitis and lumbar sacral facet arthropathy unresponsive to conservative treatment. Procedure description= the patient was seen and identified in the preoperative holding area, risks and benefits and alternative of the procedure and possible complications discussed with the patient, and he agreed with the preceding, patient signed the consent, an IV was started, and vital signs were monitored and were stable throughout the procedure, patient was placed in the prone position or table and the lumbosacral area was prepped and draped with a sterile fashion, vital signs were closely monitored during the procedure, the fluoroscopy camera was placed in the contralateral oblique view on the right sacroiliac joint and the lower part of the joint was identified, local infiltration of the skin and subcutaneous tissue with lidocaine 1% 2 mL then a 22-gauge Quincke-type spinal needle advanced slowly under fluoroscopy and placed in the posterior and inferior border of the right sacroiliac joint, placement confirmed with AP and lateral view, and after appropriate needle placement confirmed and after negative aspiration for heme and CSF and there was no paresthesia during the injection, 3 ml of Marcaine 0.5% and 40 mg of Kenalog injected after negative aspiration, the needle removed intact. Patient tolerated the procedure well without any complication, The patient returned to supine position after the back was cleaned and a Band- Aid applied, the patient transported to recovery room in stable condition and he was monitored for 30 minutes before he was discharged home and then patient was reexamined before going home and patient was discharged in stable condition and patient will follow up with the pain clinic in a few weeks
[2017-10-06] MEDS ORDERED: IV FLUID CONTINUATION 1,000 ML IV ONE (10:14)
[2017-10-06 10:37] VITALS: BP 150/60; PULSE 73
--- NOTE | 2017-10-06 12:56 | FL ---
EXAMINATION TYPE: FL guided pain mgmt statistic DATE OF EXAM: 10/06/2017 CLINICAL HISTORY: Right sacroiliac joint pain. TECHNIQUE: Fluoroscopy. COMPARISON: None. FINDINGS: Fluoroscopic guidance was provided during pain relief procedure performed by Dr. Potter . A total of 3 seconds of fluoroscopic time was utilized during the procedure and single spot intrao perative image is acquired. Single image acquired shows needle localization at inferior right SI hung nt. IMPRESSION: As Above.
== END 2017-10-06 10:48 | disposition home or self-care (01) ==
LOC: ORPAIN 07:55
PROVIDERS: ATTEND Specialist
DX: G89.29 Other chronic pain (principal); M46.1 Sacroiliitis, not elsewhere classified; M47.816 Spondylosis without myelopathy or radiculopathy, lumbar region
CPT/HCPCS: 27096; J2250; J3301; J3010

== ENCOUNTER → 2017-11-04 | Outpatient (CLI) | payer OTHER ==
[2017-11-04 14:00] VITALS: BP 137/85; PULSE 92; RESP 16
--- NOTE | 2017-11-04 14:27 | P.PN ---
Progress Note - Text Progress Note Date: 11/04/17 Progress Note - Arielle is a 62-year-old female presents today with continued lower back pain. Her low back pain was significantly improved with less SI joint injections. She had 2 SI joint injections consecutively. She reports that she had about 2-3 weeks of pain relief from both injections. She felt that after her injections she had such good pain relief that she was not using any pain medications. She reports that her pain is in her low back and in her right buttock sometime she was down her leg. She reports that almost pain sensations improved after SI joint injections. In the past she had 2 SI joint injections and SI joint rhizotomy on the left side and her pain is significantly improved. Today she is inquiring about rhizotomy on the right side. She is using [place] only as needed. Motrin only as needed. She denies any side effects from the medications. She denies any blood thinning medications. In addition to above, 13-point review of systems is also negative for chest pain , shortness of breath, changes in vision, changes in hearing, new onset weakness , abdominal pain, diarrhea, extreme fatigue, malaise, fever, skin changes, homicidal or suicidal ideation, or bowel or bladder incontinence. Vital Signs: Reviewed in EMR Gen: WDWN, AAOx3, NAD HEENT: NCAT, EOMI, hearing grossly normal Pulm: resp unlabored Abd: soft, NT, ND Neck: supple, trachea midline TTP lower thoracic spine paravertebral area ROM in flexion lumbar spine: reduced ROM in extension lumbar spine: reduced Lumbar paravertebral tenderness: + Facet loading: + bilateral SI joint tenderness: + Right Positive tenderness and SI joint compression right Positive Alejo's test on the right Neuro: CN II-XII grossly intact, muscle strength lower extremities PRESERVED Imaging: Reviewed in EMR Assessment: 1. Sacroilitis 2. Lumbar spondylosis Plan: 1. Explanation: Opioid and psychological risk scores were reviewed. Diagnoses , prognoses, and multiple treatment options including but not limited to physical therapy, interventional therapies, adjuvant medical therapies, narcotic medication therapies, and surgery were discussed with the patient and all questions were answered to the patient's satisfaction. 2. Opioid agreement: Patient has signed an opioid agreement 3. Counseling: The patient was counseled extensively on SMOKING CESSATION, BODY MASS INDEX, EXERCISE. Specifically, the patient was instructed regarding the importance of smoking cessation, obesity, and exercise in the context of both chronic pain and overall health. 4. Procedures: I discussed the risks and benefits of the right-sided sacroiliac rhizotomy. Patient is in agreement and would like to schedule that as soon as possible. 5. Consultations: None 6. Investigations: Maps was checked today 7. Medications: I did refill the patient's prescriptions for Wareham 7.5 mg twice a day when necessary. I did write to prescription dated 28 days apart first on to be filled on or after November 08 the second one to be filled on or after December 06. Also did write her a prescription for Motrin 800 mg twice a day when necessary. I discussed with patient she should not use any medications on a regular basis and only use as needed. Patient is in agreement 8. Disposition: We will schedule patient for her procedure symptoms possible and in follow-up in about 8 week's time PQRS measures: 1-Patient's medications are documented in the chart. 2-Tobacco use is positive, counseling given 3-Patient has not had a pneumococcal vaccine. 4-Advanced care planning discussed, patient unable to give. 5-Opioid contract signed with the patient. 6-Pain positive, follow-up visit or procedure scheduled 7-Patient's blood pressure measured and documented, and WNL. 8-Patient's weight was measured, and body mass index ABOVE the normal limits, and counseling was done. Patient instructed to follow up with PCP. 9-Patient WAS NOT identified as an unhealthy alcohol user.
== END | disposition home or self-care (01) ==
LOC: PNWHC3 13:23
PROVIDERS: ATTEND Hospitalist
DX: M54.5 Low back pain (principal); M47.816 Spondylosis without myelopathy or radiculopathy, lumbar region; M46.1 Sacroiliitis, not elsewhere classified; F17.200 Nicotine dependence, unspecified, uncomplicated; Z79.891 Long term (current) use of opiate analgesic; Z71.6 Tobacco abuse counseling
CPT/HCPCS: 99211

== ENCOUNTER 2017-11-18 06:12 | Day surgery (SDC) | payer OTHER ==
[2017-11-15 16:27] VITALS: BMI 39.4
[~2017-11-18 06:12] MED LIST changes: -IV FLUID CONTINUATION 1,000 ML IV ONE; -LIDOCAINE 1% 20 ML VIAL (10MG/ML) FOR IV START INTRADERMA ONE
[2017-11-18 06:30] VITALS: RESP 18; TEMP 98
[2017-11-18] MEDS ORDERED: LACTATED RINGERS 1,000 ML IV ONE (06:31)
[2017-11-18] MEDS ORDERED: LIDOCAINE 1% 20 ML VIAL (10MG/ML) FOR IV START INTRADERMA ONE (06:31)
[2017-11-18] MEDS ORDERED: IV FLUID CONTINUATION 1,000 ML IV ONE ×2 (07:47)
--- NOTE | 2017-11-18 07:57 | P.PCN ---
Date of Procedure: 11/18/17 Procedure(s) Performed: PREOPERATIVE DIAGNOSIS: 1-Lumbosacral spondylosis with facet arthropathy without myelopathy. 2- Right sacroiliit. post operative Diagnosis: . 1-Lumbosacral spondylosis with facet arthropathy without myelopathy. 2- Right sacroiliit. PROCEDURES: 1- radiofrequency ablation of the Peripheral nerve of the right sacroiliac Joints ( total of 3 peripheral nerves ) The procedure was performed using fluoroscopic guidance during needle placement to assure proper position and maximize safety . ANESTHESIA: LOCAL ANESTHESIA = moderate sedation with intravenous versed 2 mg, and Fentanyle 50 mcg EBL: NONE INDICATION/MEDICAL NECESSITY: History of low back pain secondary to right sacroiliitis and lumbosacral arthropathy unresponsive to more conservative treatments. The patient reported more than 50% relief of pain symptoms following 2 previous sacroiliac joints blocks with Bupivacaine. PROCEDURE DESCRIPTION: The patient was seen and identified in the preoperative area. Risks, benefits, complications, and alternatives were discussed with the patient. The patient agreed to proceed with the procedure and signed the consent. Vital signs were checked before and after the procedure and they remained stable. Patient ambulated to the procedure room and time out was completed. The patient was placed in the prone position on the procedure table and a pillow was placed under the abdomen to reduce lumbar lordosis. The lumbosacral area was prepped and draped in the usual sterile fashion. Critical pause was taken. Using right oblique fluoroscopy, the junction of the transverse process and the superior articular process of the right S1 vertebra, which correspond to the fluoroscopic image of the "eye of the Talha dog" was identified. Subsequently, a 10-cm 20 -gauge radiofrequency cannula with a 10-mm active tip was advanced under fluoroscopic guidance until contact was made with periosteum. At this level, the Sensory testing of the L5 dorsal ramus was performed at 50 Hz and 0 to 1 volt with production of concordant pain starting at 0.5 volt. Motor stimulation was done at 2.5 Hz with stimulation of mulitifidus muscle contration . No radicular symptoms or paresthesias were produced during the testing. Subsequently, the L5 dorsal ramus was subjected to a radiofrequency ablation at 80 degree celsius for 90 seconds . after 0.5% Bupivacaine 1 ml injected at each level after negative aspirations . The needle was withdrawn intact the procedure was repeated on the left side using the same technique. S1, S3, Lateral Branch RF: Under fluoroscopic guidance, three 10-cm 20 -gauge radiofrequency cannula with a 10-mm active tip were inserted at the medial edge of the right sacroiliac joint starting from the inferior border of the right sacroiliac joint going superiorly, total of 6 needle was placed at the medial edge of the right sacroiliac joint, needle placement confirmed with the above oblique and lateral view,then the sensory testing ,was performed at 50 Hz and 0 to 1 volt at the three levels with production of concordant pain starting at 0.5 volt. Motor stimulation was done at 2.5 Hz. No radicular symptoms or paresthesias were produced during the testing. Subsequently, the radiofrequency ablation at a mode of 90 seconds at 80 degrees Celsius at each leveles, Before the needles taken out ropivacaine 0.5% 6 mL mixed with 40 mg of Kenalog 1 mL injected at each level after negative aspiration. The needle was withdrawn intact after each injection. COMPLICATIONS: The patient tolerated the procedure well without any acute complications. DISPOSTION/PLAN: The patient ambulated to the recovery area after the procedure in a stable condition for observation. Patient was reexamined prior to discharge. Patient was observed for 30 minutes in the recovery area and was discharged home, accompanied by an adult, after meeting discharged criteria. Discharge instructions were give to the patient by the staff. Patient was specifically instructed not to drive today and to rest for the rest of the day. The patient will schedule a follow up visit in the clinic in weeks or earlier if needed.
[2017-11-18 08:07] VITALS: BP 135/83; PULSE 76
--- NOTE | 2017-11-18 08:21 | FL ---
EXAMINATION TYPE: FL guided pain mgmt statistic DATE OF EXAM: 11/18/2017 HISTORY: Pain Rt SI jt radio freq.Dr Lemos. 35 sec fl time. 6 films scanned
== END 2017-11-18 08:20 | disposition home or self-care (01) ==
LOC: ORPAIN 06:12
PROVIDERS: ATTEND Specialist
DX: M47.817 Spondylosis without myelopathy or radiculopathy, lumbosacral region (principal)
CPT/HCPCS: 64640; 64635; J2250; J3301; J3010; 99152; 99153

== ENCOUNTER → 2018-01-28 | Outpatient (CLI) | payer OTHER ==
--- NOTE | 2018-01-31 09:49 | MM ---
Reason for exam: additional evaluation requested from abnormal screening. Last mammogram was performed 1 month ago. History: Patient is postmenopausal. Benign excisional biopsy of the left breast. Physical Findings: Nurse did not find any significant physical abnormalities on exam. MG 3D Work Up W/Cad RT Spot compression CC, spot compression MLO, and LM view(s) were taken of the right breast. Prior study comparison: January 12, 2018, bilateral MG 3d screening mammo w/cad. July 17, 2016, bilateral MG 3d screening mammo w/cad. The breast tissue is heterogeneously dense. This may lower the sensitivity of mammography. Scattered nodules persist. Ultrasound recommended. These results were verbally communicated with the patient and result sheet given to the patient on 01/28/18. ASSESSMENT: Incomplete: need additional imaging evaluation, BI-RAD 0 RECOMMENDATION: Ultrasound of the right breast.
--- NOTE | 2018-01-31 09:50 | USB ---
Reason for exam: additional evaluation requested from abnormal screening. History: Patient is postmenopausal. Benign excisional biopsy of the left breast. US Breast Workup Limited RT Right limited breast ultrasound including focal area of concern, retroareolar and axilla demonstrates a 3 x 2 x 3mm lesion too small to characterize at 9 o'clock, a 3 x 3 x 3mm lesion too small to characterize at 11 o'clock and a 4 x 3 x 3mm hypoechoic lesion at 2 o'clock. These results were verbally communicated with the patient and result sheet given to the patient on 01/28/18. ASSESSMENT: Probably benign, BI-RAD 3 RECOMMENDATION: Ultrasound of the right breast in 6 months.
== END | disposition home or self-care (01) ==
LOC: RADMAMWWP 14:02
PROVIDERS: ATTEND Family Medicine
DX: R92.8 Other abnormal and inconclusive findings on diagnostic imaging of breast (principal)
CPT/HCPCS: 77061; 77065

== ENCOUNTER 2018-03-07 06:08 | Day surgery (SDC) | payer OTHER ==
[2018-03-03 08:47] VITALS: BMI 41.1
[~2018-03-07 06:08] MED LIST changes: -LACTATED RINGERS 1,000 ML IV SCH; +SODIUM CHLORIDE 0.9% 500 ML 500 ML IV SCH
[2018-03-07 06:43] VITALS: TEMP 97.2
[2018-03-07] MEDS ORDERED: LIDOCAINE 1% 20 ML VIAL (10MG/ML) FOR IV START INTRADERMA ONE (06:50)
--- NOTE | 2018-03-07 07:35 | P.PCN ---
Date of Procedure: 03/07/18 Procedure(s) Performed: PREOPERATIVE DIAGNOSIS: 1- Lumbar Degenerative Disc Diseases 2-Lumbar spondylosis with Facet arthropathy without myelopathy 3-sacroiliitis POSTOPERATIVE DIAGNOSIS: 1-Lumber Degenerative Disc Diseases 2-Lumbar spondylosis with Facet arthropathy without myelopathy. 3-sacroiliitis PROCEDURE 1. Lumbar epidural steroid injection under fluoroscopic guidance at the L5-S1 level. 2. Lumbar epidurogram. ANESTHESIA: Local with 1% lidocaine 3 ml and , moderate sedation with intravenous Versed 2 mg ,and fentanyle 50 Mcg EBL: Minimal PROCEDURE INDICATION: The patient with low back pain and radiculitis symptoms unresponsive to conservative treatment. Fluoroscopy was used to optimize visualization of the needle placement and to maximize safety. PROCEDURE DESCRIPTION / TECHNIQUE: The patient was seen and identified in the preoperative area. Risks, benefits , complications including but not limited to infections ,bleeding ,allergic reaction to the medications ,nerve damage and not complete pain releife , and alternatives were discussed with the patient. The patient agreed to proceed with the procedure and signed the consent. IV was started, and vital signs were stable. Patient was taken to the OR and time out was completed. The patient was placed in the prone position on procedure table and a pillow was placed under the abdomen to reduce lumbar lordosis. The lumbosacral area was prepped and draped in the usual sterile fashion.ere closely monitored during the procedure. Conscious sedation was used during the procedure to decrease patients anxiety. Vital signs was monitered during the entire procedure. Using anterior-posterior fluoroscopy, the L5-S1 interlaminar space was identified and the skin over this site was marked and then infiltrated with 1% lidocaine subcutaneously. Subsequently, a 20-gauge Tuohy epidural needle was inserted and advanced toward the epidural space using the ``Loss of resistance technique and guided by AP and lateral fluoroscopy. The correct needle position in the epidural space was verified with the injection of 2 mL of the water soluble contrast dye Isovue 200 contrast and observing an excellent epidurogram with the epidural spread of the dye, after negative aspiration for blood and CSF and in the absence of paresthesias. Again after negative aspiration, a 6 ml mixture containing 80 mg of Depo-medrol , and 2 ml of preservative free Normal Saline, and 2 ml of preservative free lidocaine 1% solution was injected and a washout of epidurogram was seen. Needle was withdrawn intact, skin was cleansed, and bandages were applied. COMPLICATIONS: None DISPOSITION / PLANS: The patient was placed in a supine position and transferred to the recovery area in a stable condition for observation. There was no evidence of lower extremity motor or sensory deficit after the procedure. Patient was discharged from the recovery room after meeting discharge criteria. Home discharge instructions were given to the patient by the staff. The patient was reexamined prior to discharge. The patient will schedule a follow up in the clinic in 2-4 weeks.
[2018-03-07] MEDS ORDERED: IV FLUID CONTINUATION 1,000 ML IV ONE (07:43)
[2018-03-07 07:48] VITALS: RESP 16
[2018-03-07 07:58] VITALS: BP 114/64; PULSE 84
--- NOTE | 2018-03-07 09:00 | FL ---
EXAMINATION TYPE: FL guided pain mgmt statistic DATE OF EXAM: 03/07/2018 CLINICAL HISTORY: Low back pain. TECHNIQUE: Fluoroscopy. COMPARISON: None. FINDINGS: Fluoroscopic guidance was provided during pain relief procedure performed by Dr. Potter . A total of 1 seconds of fluoroscopic time was utilized during the procedure and 3 spot images are acquired. Images acquired shows needle localization of the lumbar spine. IMPRESSION: As Above.
== END 2018-03-07 08:20 | disposition home or self-care (01) ==
LOC: ORPAIN 06:08
PROVIDERS: ATTEND Specialist
DX: M51.36 Other intervertebral disc degeneration, lumbar region (principal); M47.816 Spondylosis without myelopathy or radiculopathy, lumbar region; M46.1 Sacroiliitis, not elsewhere classified; I10 Essential (primary) hypertension; K21.9 Gastro-esophageal reflux disease without esophagitis
CPT/HCPCS: 62323; J2250; J1030; J3010; Q9966

== ENCOUNTER → 2018-03-16 | Outpatient (CLI) | payer OTHER ==
--- NOTE | 2018-03-16 09:16 | US ---
EXAMINATION TYPE: US thyroid st tissue head/neck DATE OF EXAM: 03/16/2018 COMPARISON: NONE CLINICAL HISTORY: R59.1 Enlarged Lymph nodes. Left lateral neck palpable area x couple months Left lateral neck submandibular at patient's area of concern: appears wnl Right lateral neck submandibular for comparison: appears wnl IMPRESSION: 1. No suspicious ultrasound abnormalities at the palpable region. 2. If additional workup is required, consider CT neck with contrast.
== END | disposition home or self-care (01) ==
LOC: RADUSWWP 08:46
PROVIDERS: ATTEND Family Medicine
DX: R59.1 Generalized enlarged lymph nodes (principal)
CPT/HCPCS: 76536

== ENCOUNTER → 2018-03-22 | Day surgery (SDC) | payer OTHER ==
[2018-03-18 13:55] VITALS: BMI 41.1
[2018-03-22 09:50] VITALS: BP 174/91; PULSE 91; RESP 16; TEMP 97.5
--- NOTE | 2018-03-22 10:24 | P.PN ---
Progress Note - Text Progress Note Date: 03/22/18 The patient was scheduled to have lumbar epidural steroid injections today, in the preoperative holding area, patient reported, that she had no pain ,since the last procedure , for this reason the procedure was canceled and patient will follow up in the pain clinic, to have medication refill
== END ==
LOC: ORPAIN 09:14
PROVIDERS: ATTEND Anesthesiology
DX: Z53.8 Procedure and treatment not carried out for other reasons (principal)

== ENCOUNTER → 2018-03-31 | Outpatient (CLI) | payer OTHER ==
[~2018-03-31] MED LIST changes: +REGADENOSON 0.4 MG/5 ML SYRINGE IV ONE; -SODIUM CHLORIDE 0.9% 500 ML 500 ML IV SCH
--- NOTE | 2018-03-31 12:47 | NM ---
EXAMINATION TYPE: NM stress lexiscan cardiolite DATE OF EXAM: 03/31/2018 COMPARISON: NONE HISTORY: 62-year-old female shortness of breath. History of hypertension, family history, 25-30-pack- year history of smoking, and COPD. TECHNIQUE: After the intravenous administration of 10.35 mCi Tc 99m Sestamibi - Cardiolite resting S PECT images acquired 45 minutes post injection. The patient received 0.4mg Lexiscan, 26 mCi Tc 99m Sestamibi - Stress images obtained 30 minutes post injection FINDINGS: Review of stress and rest SPECT images demonstrates a large area of reversibility along the inferior wall. However, there is prominent GI activity and gated analysis shows relatively normal wall motion with an estimated left ventricular ejection fraction of 65 %. TID is calculated at 0.93, within norm al limits. IMPRESSION: Large area of reversibility along the inferior wall. Further clinical correlation and workup recommen ded as there is prominent adjacent GI activity and relatively normal wall motion with LVEF of 65%.
--- NOTE | 2018-04-01 11:51 | EST ---
EXERCISE STRESS AGE: 62 SEX: F HT: 5'4" WT: 240 PROTOCOL: Lexiscan Cardiolite Stress Test HEART RATE REST: 87 BLOOD PRESSURE REST: 109/62 MAXIMUM HEART RATE ACHIEVED: 98 MAXIMUM BLOOD PRESSURE: 127/74 INDICATIONS: Shortness of breath CLINICAL INFORMATION: A 62-year-old female referred for a stress test for shortness of breath. Baseline heart rate 87 beats per minute. Baseline blood pressure 109/62 mmHg. Baseline 12-lead ECG shows normal sinus rhythm with normal cardiac intervals. Patient received Lexiscan infusion per protocol. No significant change in heart rate or blood pressure. There was no ECG evidence for ischemia. No arrhythmias noted. Nuclear portion of the stress test will be reported separately. MMODL / IJN: [id number] /
== END | disposition home or self-care (01) ==
LOC: RADNMMAIN 07:59
PROVIDERS: ATTEND Family Medicine
DX: R06.02 Shortness of breath (principal)
CPT/HCPCS: 93017; 78452; A9500; J2785

== ENCOUNTER 2018-04-11 07:22 | Day surgery (SDC) | payer OTHER ==
[2018-04-06 15:28] VITALS: BMI 40.5
[~2018-04-11 07:22] MED LIST changes: -REGADENOSON 0.4 MG/5 ML SYRINGE IV ONE; +SODIUM CHLORIDE 0.9% 500 ML 500 ML IV SCH
--- NOTE | 2018-04-11 07:35 | P.GSHP ---
History of Present Illness H&P Date: 04/11/18 62-year-old female presents for right greater trochanteric bursa injection. She has severe tenderness to palpation of the GTB. Pain is 6-8 out of 10 in severity and location. The fluid lying on her side and with abduction. Physical Examinations : CVS: Regular rate and rhythm, no peripheral edema Pulmonary: Nonlabored, no wheezing Right hip: Pain with flexion, severe tenderness to palpation over the greater trochanteric bursa Plan: Right GTB steroid injection with fluoroscopy. Past Medical History Past Medical History: GERD/Reflux, Hypertension, Musculoskeletal Disorder, Osteoarthritis (OA), Sleep Apnea/CPAP/BIPAP Additional Past Medical History / Comment(s): SLEEP APNEA RESOLVED. Pain middle back down right buttock and right leg, numbness and tingling down to right great toe sometimes. History of Any Multi-Drug Resistant Organisms: None Reported Past Surgical History: Back Surgery, Hysterectomy, Joint Replacement, Orthopedic Surgery Additional Past Surgical History / Comment(s): "SLEEP APNEA SURGERY". CERVICAL FUSION SURGERY(PLATE). ARTHROSCOPY OF RIGHT SHOULDER (TENDON RELEASE) AND RIGHT KNEE, total right hip replacement. MULTIPLE PAIN PROCEDURES. Past Anesthesia/Blood Transfusion Reactions: No Reported Reaction Smoking Status: Current some day smoker - Past Family History Mother Family Medical History: Cancer, Diabetes Mellitus, Deep Vein Thrombosis (DVT), Memory Impairment Additional Family Medical History / Comment(s): colorectal cancer Brother(s) Family Medical History: Cancer Additional Family Medical History / Comment(s): Leukemia Medications and Allergies Home Medications Medication Instructions Recorded Confirmed Type Aspirin 81 mg PO DAILY 08/11/13 04/11/18 History Pantoprazole [Protonix] 40 mg PO QAM 08/12/15 04/06/18 History HYDROcodone/APAP 7.5-325MG [[place] 1 each PO Q12HR PRN #30 tab 01/27/18 04/06/18 Rx 7.5-325] Ibuprofen [Motrin] 800 mg PO BID PRN #60 tab 01/27/18 04/06/18 Rx cloNIDine HCL [Catapres] 0.1 mg PO BID 01/27/18 04/06/18 History Losartan-Hctz 50-12.5 mg [Hyzaar 1 tab PO DAILY 03/24/18 04/06/18 History 50-12.5] Citalopram Hydrobromide [CeleXA] 20 mg PO DAILY 04/06/18 04/06/18 History Allergies Allergy/AdvReac Type Severity Reaction Status Date / Time No Known Allergies Allergy Verified 04/11/18 07:30
[2018-04-11 07:40] VITALS: RESP 16; TEMP 97.6
[2018-04-11] MEDS ORDERED: LACTATED RINGERS 1,000 ML IV ONE ×2 (07:44→08:53)
[2018-04-11 07:45] LABS: Glucose,Whole Blood 109 mg/dL (75-99)
[2018-04-11 09:12] VITALS: BP 114/67; PULSE 72
--- NOTE | 2018-04-11 09:29 | P.PCN ---
Date of Procedure: 04/11/18 Description of Procedure: Pre OP diagnoses: Right trochanteric bursitis Postoperative diagnosis: Right trochanteric bursitis. Operation: Right trochanteric bursa steroid injection under fluoroscopy guidance. Anesthesia: IV sedation with Versed 2mg with lidocaine 1% 2 mL Complications: none . Description of the procedure: patient had history of severe low back pain and hip pain secondary to trochanteric bursitis for this reason patient was a good candidate to have right trochanteric bursa steroid injection which hopefully it will help his pain , risks and benefits of the procedure including but not limited to risk of infection and bleeding. Patient was taken to the operating room placed in supine position or standard monitors applied patient and after induction of anesthesia the back and the hip area prepped with chlorhexidine 3 times, and under sterile technique using 25-gauge needle for skin and subcutaneous tissue infiltration was first admitted the right trochanteric bursa injection at 22- gauge Quincke-type spinal needle advanced slowly under fluoroscopy and placed in the right trochanteric bursa needle placement confirmed with AP and lateral view and after appropriate needle placement confirmed under fluoroscopy 4 ML of Marcaine 0.5% mixed with 40 mg of Kenalog injected after negative aspiration for heme and there was no CSF and there was no paresthesia during the injection and needle removed and a dressing applied and the same procedure repeated at the left side, patient tolerated the procedure well without any complication and she will follow up with the pain clinic in a few weeks and patient discharged home in stable condition
--- NOTE | 2018-04-11 09:50 | FL ---
Fluoroscopy History: RT TROCHANTERIC BURSA 9 SEC FLUORO. 1 IMAGE SCANNED.
== END 2018-04-11 09:30 | disposition home or self-care (01) ==
LOC: ORPAIN 07:22
PROVIDERS: ATTEND Anesthesiology
DX: M70.61 Trochanteric bursitis, right hip (principal); G89.29 Other chronic pain; M51.36 Other intervertebral disc degeneration, lumbar region; M51.26 Other intervertebral disc displacement, lumbar region; M47.816 Spondylosis without myelopathy or radiculopathy, lumbar region; M46.1 Sacroiliitis, not elsewhere classified; K21.9 Gastro-esophageal reflux disease without esophagitis; I10 Essential (primary) hypertension; M19.90 Unspecified osteoarthritis, unspecified site; F17.200 Nicotine dependence, unspecified, uncomplicated; Z96.641 Presence of right artificial hip joint; Z98.1 Arthrodesis status; Z79.82 Long term (current) use of aspirin; Z79.899 Other long term (current) drug therapy
CPT/HCPCS: 20611; J2250; J1030; J2001

== ENCOUNTER → 2018-04-13 | Outpatient (CLI) | payer OTHER ==
--- NOTE | 2018-04-13 09:10 | CT ---
EXAMINATION TYPE: CT soft tissue neck w con DATE OF EXAM: 04/13/2018 COMPARISON: None HISTORY: 62-year-old female mass and lump, Fullness in throat TECHNIQUE: Contiguous axial scanning of the soft tissues of the neck performed with IV Contrast, ridge ent injected with 100 mL of Isovue 300. Coronal/sagittal reconstructions performed. CT DLP: 710.4 mGycm Automated exposure control for dose reduction was used. FINDINGS: Mild ectasia upper descending thoracic aorta 3.0 cm. Main right pulmonary artery is borderline dilate d at 2.5 cm. Visualized intracranial structures, orbits and globes, paranasal sinuses, and mastoid air cells appea r clear. Slight rightward nasal septal deviation. Nasopharynx is clear. Dental amalgam artifact. Allowing for this limitation, oropharynx appears grossly clear. Minimal hype rtrophy of the lingual tonsils. Epiglottis and prevertebral soft tissues are within normal limits. The glottic and subglottic structures as well as the tracheal column and visualized upper lungs appea r clear. The thyroid and submandibular glands as well as the parotid glands appear satisfactory. Small 4 to 5 mm parotid space lymph node on either side. Additional scattered nonenlarged lymph nodes are present on either side of the neck measuring up to 6 mm. No cervical lymphadenopathy by CT size criteria. Postsurgical changes of C5-C7 ACDF. IMPRESSION: NO CERVICAL LYMPHADENOPATHY OR SUSPICIOUS NECK MASS IS SEEN. IF THERE IS A SITE OF PARTICULAR CLINICA L CONCERN, THE EXAM CAN BE REVIEWED WITH DIRECTED ATTENTION.
== END | disposition home or self-care (01) ==
LOC: RADCTMAIN 07:01
PROVIDERS: ATTEND Family Medicine
DX: R22.1 Localized swelling, mass and lump, neck (principal)
CPT/HCPCS: 70491; Q9967

== ENCOUNTER → 2018-04-21 | Outpatient (CLI) | payer OTHER ==
[2018-04-21 11:47] LABS: HCT 43.7 % (34.0-46.0); HGB 14.2 gm/dL (11.4-16.0); MCH 30.6 pg (25.0-35.0); MCHC 32.5 g/dL (31.0-37.0); MCV 94.1 fL (80.0-100.0); Mean Platelet Volume 6.3; Platelet Count 318 k/uL (150-450); RBC 4.64 m/uL (3.80-5.40); RDW 13.5 % (11.5-15.5)
[2018-04-21 12:03] LABS: Anion Gap 10 mmol/L; Blood Urea Nitrogen 15 mg/dL (7-17); Carbon Dioxide 31 mmol/L (22-30); Chloride 99 mmol/L (98-107); Potassium 4.6 mmol/L (3.5-5.1); Sodium 140 mmol/L (137-145)
== END | disposition home or self-care (01) ==
LOC: LABPAT 10:27
PROVIDERS: ATTEND Internal Medicine Interventional Cardiology
DX: Z01.812 Encounter for preprocedural laboratory examination (principal); I10 Essential (primary) hypertension; R94.39 Abnormal result of other cardiovascular function study; R06.02 Shortness of breath
CPT/HCPCS: 80051; 82565; 84520; 85027

== ENCOUNTER 2018-05-02 09:14 | Day surgery (SDC) | payer OTHER ==
[2018-04-26 15:24] VITALS: BMI 40.5
[~2018-05-02 09:14] MED LIST changes: +ALPRAZolam 0.25 MG TAB PO PRN; +ALPRAZolam 0.5 MG TAB PO PRN; +ASPIRIN 325 MG TAB PO STA; +ATORVASTATIN 80 MG TAB PO STA; +NITROGLYCERIN SL TABS 0.4 MG TAB SUBLINGUAL PRN; +SODIUM CHLORIDE 0.9% 1,000 ML in EMPTY BAG 1 BAG IV ONE; -SODIUM CHLORIDE 0.9% 500 ML 500 ML IV SCH
[2018-05-02 09:50] VITALS: TEMP 97.9
[2018-05-02] MEDS ORDERED: fentaNYL (PF) 50 MCG/ML 2 ML AMP IV ONE (10:50)
[2018-05-02] MEDS ORDERED: LIDOCAINE 1% INJ 10MG/ML (20 ML MDV) SQ ONE (10:53)
[2018-05-02] MEDS ORDERED: VERAPAMIL SYRINGE (5 MG/10 ML) INTRAARTER ONE (11:01)
[2018-05-02] MEDS ORDERED: HEPARIN SODIUM 1,000 UN/ML (10ML VL) IV ONE (11:08)
[2018-05-02] MEDS ORDERED: IOPAMIDOL-370 150ML BTL INJ ONE (11:11)
[2018-05-02] MEDS ORDERED: RX INFO: IV CONTRAST WAS GIVEN 1 EACH MISC MISCELLANE PRN (11:22)
[2018-05-02] MEDS ORDERED: HYDROcodone/APAP 7.5-325MG 1 EACH TAB PO PRN (11:23)
[2018-05-02] MEDS ORDERED: SODIUM CHLORIDE 0.9% 1,000 ML IV SCH (11:30)
--- NOTE | 2018-05-02 11:40 | CC ---
CARDIAC CATHETERIZATION REPORT Mrs. Cavazos is a 62-year-old female known history of hypertension, prior history of smoking, who presented with symptoms of dyspnea on exertion and progressive fatigue. She has underwent a stress test that revealed evidence of reversible defect involving the inferior wall. In view of that, recommendation made regarding cardiac catheterization, the procedures, risks and complications were discussed with the patient who is in full understanding and agreement. PROCEDURE: Patient was brought to radiographer cardiac catheterization in a fasting semi-sedated state after receiving fentanyl and Benadryl and achieving moderate conscious sedated state. Using Xylocaine anesthesia and Seldinger technique, a 6-Sol[place] Islander sheath was introduced in the right radial artery. Selective right and left coronary angiography was performed using 5- [place] Islander 3.5 right and left Sharlene catheter, multiple views of the coronary artery including hemiaxial views were obtained. Following that 5-[place] Islander tight pigtail catheter was introduced in the left ventricle and a 30 degree HOLDEN view of the left ventricle was obtained. Following that, catheter and sheath were removed. Hemostasis was obtained with a TR band. There was no immediate complication. Patient is returned to her room in stable condition. Of note, the patient received 5000 units of intravenous heparin as well as intra-arterial verapamil. FINDINGS: LEFT MAIN: This is a large-sized vessel, bifurcating into left circumflex, left anterior descending artery. Left main coronary artery has no evidence of obstructive coronary artery disease. LEFT ANTERIOR DESCENDING ARTERY: This is a large-sized vessel reaching toward the apex, tortuous throughout its course and giving rise to a diagonal branch. The left anterior descending artery as well as branches have no evidence of obstructive coronary artery disease. LEFT CIRCUMFLEX: This is a nondominant large size vessel giving rise to 3 obtuse marginal branches, the first and the third one are the largest in caliber. The left circumflex is tortuous but has no evidence of high-grade stenosis. RIGHT CORONARY ARTERY: This is a large dominant vessel, bifurcating into PDA and posterolateral segment and branches. The right coronary artery as well as branches have no evidence of obstructive coronary artery disease. LEFT VENTRICULOGRAM: Left ventriculogram is performed in 30 degree HOLDEN view and reveals normal left ventricular size and systolic function. Ejection fraction is 60%. There was no significant mitral regurgitation. HEMODYNAMICS: There was no gradient across the aortic valve. The left ventricular end- diastolic pressure was 10-12 mmHg. CONCLUSION: 1. Normal coronary arteries. 2. Normal left ventricular size and systolic function. RECOMMENDATION: In view of finding anatomy, we recommend continuing medical therapy with aggressive risk modifications being initiated. Those findings and recommendation were discussed with the patient her family, who are in full understanding and agreement. Duration of procedure is 19 minutes. DARELL / MEENU: [id number] /
--- NOTE | 2018-05-02 11:53 | LTR ---
DATE OF SERVICE: 05/02/2018 RE: Ana Rosa Cavazosdy Dear ; I had the pleasure to perform a cardiac catheterization on Mrs. Cavazos at [facility] on May 02, 2018 and a fully copy of the procedure note will be forwarded to you. In brief, she was found to have no evidence of obstructive coronary artery disease with preserved left ventricular size and systolic function. Based on this findings, I would recommend continue medical therapy with the aggressive coronary risk modifications being initiated Thank you again for allowing me to participate in this patient's medical care. Please feel free to call for any questions. Sincerely yours, MD MICHAELA PettitL / DERICKN: [id number] /
[2018-05-02 12:52] VITALS: RESP 18
[2018-05-02 13:16] VITALS: PULSE 64
[2018-05-02 16:34] VITALS: BP 120/63
[2018-05-02] MEDS ORDERED: cloNIDine HCL 0.1 MG TAB PO SCH (21:00)
[2018-05-03] MEDS ORDERED: CITALOPRAM HYDROBROMIDE 20 MG TAB PO SCH (09:00)
[2018-05-03] MEDS ORDERED: LOSARTAN-HCTZ 50-12.5 MG 1 EACH TAB PO SCH (09:00)
[2018-05-03] MEDS ORDERED: PANTOPRAZOLE 40 MG TABLET PO SCH (09:00)
[2018-05-03] MEDS ORDERED: ASPIRIN 81 MG PO SCH (09:00)
== END 2018-05-02 16:25 | disposition home or self-care (01) ==
LOC: CATHCVL 09:14
PROVIDERS: ATTEND Internal Medicine Interventional Cardiology
DX: R94.39 Abnormal result of other cardiovascular function study (principal); G47.33 Obstructive sleep apnea (adult) (pediatric); I10 Essential (primary) hypertension; I77.1 Stricture of artery; Z79.82 Long term (current) use of aspirin; Z79.891 Long term (current) use of opiate analgesic; Z79.1 Long term (current) use of non-steroidal anti-inflammatories (NSAID); Z79.899 Other long term (current) drug therapy; Z87.891 Personal history of nicotine dependence
CPT/HCPCS: 93458; C1769; C1894; J2001; J3010; J1644; Q9967

== ENCOUNTER → 2018-05-23 | Outpatient (CLI) | payer OTHER ==
[2018-05-23 14:35] VITALS: BP 163/91; PULSE 94; RESP 16
--- NOTE | 2018-05-24 20:35 | P.PN ---
Subjective Progress Note Date: 05/23/18 This is follow-up visit for this patient with a history of severe and chronic low back pain secondary to lumbar degenerative disc diseases, lumbar herniated disc disease , lumbar spondylosis with facet arthropathy,sacroiliitis ,Right trechonteric bursitis Her pain between the interventional pain procedure with the pain medication ,Patients currently on Moroni 7.5/325 every 12 hours and Motrin 800 mg twice a day Patient denies any side effects of the medication, denies excessive drowsiness or sleepiness, denies suicidal ideation, and reports that the current pain medication is helping to control the pain ,and improve activity of daily living Patient denies any motor or sensory deficit , patient denies any fever or night sweats, denies any change in the bowel movements or urination, is currently complaining of severe low back pain mainly in the right buttock area with radiation to the buttock Physical Examinations : 1-Constitutional : Cooperative , not in acute distress . 2-HEENT : nech ; supple , no Lymphadenopathy , no Thyromegaly , normal thyroid size . eyes : no ptosis , no icterus, no photophobia . ENT : normal of hearing , normal oropharynx , no Thrush . 3- Respiratory : Chest clear to auscultations Bilaterally , no wheezing , no Rhonchi . 4- Cardiovascular : regular rate and rhythem , S1 , S2 , no S3 , no S4. 5- Gastrointestinal : abdomen soft no tenderness , bowel sounds positive all four quadrents , no organomegally . 6- Genitourinary : Defferred . 7- neurologic: Cranial nerve II to XII intact , no focal neurological deffecit . 8- Psychatric: alert , oriented X 3 , appropriate affect , intact judgment and insight . 9- Lymphatic : no Lymphadenopathy . 10- Musculoskeltal : exams of the cervical spine = motor strength normal bilateral upper extremities exams of the Lumber spine =motor strength lower extremities ,thigh and legs .5/5 deep tendon reflexes : normal Knee Jerk , normal ankle Jerk . lumber facet Loading Test positive strait leg raising test positive at 30 degree , RT ,LT , Fabere test positive RT and positive LT . Range of motion: Range of motion in flexion of the lumbar spine 30 degrees Range of motion range of motion of extension of the lumbar spine 10 tenderness over the Sacroiliac joint on the Right , Assessment and plan = Chronic low back pain secondary to lumbar degenerative disc disease , lumbar spondylosis with facet arthropathy without myelopathy , lumbar herniated disc disease Acute right sacroiliitis, trechonteric bursitis chronic and current use of high-risk medication (Opioids). The patient was counseled about risk of opioid use, psychological risk associated with opioids and was orally counseled to not overuse , divert,or sell dictations to take medications as prescribed only , and to restore medication in safe location , the patient counseled against driving while using narcotic medications, and also not to use alcohol or any illicit recreational drugs, patient's verbalized understanding that the lack of compliance will result in failure to renew narcotic prescription and possible discharge from the clinic - diagnoses, prognosis, and treatment options including but not limited to physical therapy, surgical interventions, interventional therapies , and medication management including narcotics and adjuvant medication were discussed with the patient and all the questions answered Prescription refill for Moroni 7.5/325 every 12 hours dispense 60, Motrin 800 mg twice a day dispense 60 with one refill Follow-up in 2 months PQRS Measure Charge Sheet Measure #130: Documentation of Current Meds in Medical Chart: Patient's medications documented in chart Measure #226: Tobacco Use: Screen & Cessation Intervention: Pt screened for tobacco use AND intervention given Measure #111: Pneumonia Vaccination: Pneumococcal vaccine administered or previously received Measure #47: Advance Care Plan: Advance care planning discussed & documented, plan or surrogate given Measure #412: Opioid Treatment Agreement: Documented signed opioid trtmnt agreemnt min once during opioid trtmnt Measure #408: Opioid Therapy Follow-up Evaluation: Patient had f/u eval minimum every 3 months during opioid therapy Measure #317: Preventitive Care & Scrn High Bld Press & F/U: Normal blood pressure, f/u not required Measure #128: Body Mass Index (BMI) Screening & Follow-up: BMI documented ABOVE normal parameters - f/u documented Measure #131: Pain Assessment & Follow-up: Pain positive & plan documented, Follow-up scheduled Measure #431: Unhealthy Alcohol Use Preventative Care & Scrn: Patient not identified as an unhealthy alcohol user PQRS Narrative: Home Medications: Ambulatory Orders Aspirin 81 mg PO DAILY 08/11/13 Citalopram Hydrobromide [CeleXA] 10 mg PO QAM 08/11/13 Losartan/Hydrochlorothiazide [Hyzaar 100-25 Tablet] 1 tab PO QAM 08/11/13 Pantoprazole [Protonix] 40 mg PO QAM 08/12/15 Vitamin B Complex 1 cap PO DAILY 08/12/15 Multivitamin [Multivitamins Adult Gummies] 1 each PO DAILY 07/05/17 HYDROcodone/APAP 7.5-325MG [Moroni 7.5-325] 1 each PO Q12HR PRN #60 tab 08/30/17 HYDROcodone/APAP 7.5-325MG [Moroni 7.5-325] 1 tab PO Q12HR PRN 30 Days #60 tab 08/30/17 Ibuprofen [Motrin] 800 mg PO BID PRN #60 tab 08/30/17 - Controlled Substance Measures Is patient prescribed a controlled substance at discharge?: Yes When asked, does pt state using other controlled substances?: Yes If prescribed controlled substance>3 days was MAPS reviewed?: Yes If Rx opioid, was Start Talking consent form obtained?: Yes If opioid is for acute pain is fill amount 7 days or less?: No Was information provided regarding opioid addiction?: Yes Objective - Vital Signs Vital signs: Vital Signs Temp Pulse 94 05/23/18 14:30 Resp 16 05/23/18 14:30 BP 163/91 05/23/18 14:30 Pulse Ox 93 L 05/23/18 14:30
== END ==
LOC: PNWHC3 14:11
PROVIDERS: ATTEND Specialist
DX: G89.29 Other chronic pain (principal); M51.26 Other intervertebral disc displacement, lumbar region; M51.36 Other intervertebral disc degeneration, lumbar region; M47.816 Spondylosis without myelopathy or radiculopathy, lumbar region; M46.96 Unspecified inflammatory spondylopathy, lumbar region; M46.1 Sacroiliitis, not elsewhere classified; M70.60 Trochanteric bursitis, unspecified hip; Z79.891 Long term (current) use of opiate analgesic; Z79.899 Other long term (current) drug therapy
CPT/HCPCS: 99211

== ENCOUNTER → 2018-07-18 | Outpatient (CLI) | payer OTHER ==
[2018-07-18 12:11] VITALS: BP 112/74; PULSE 91; RESP 16
--- NOTE | 2018-07-18 16:00 | P.PN ---
Subjective Progress Note Date: 07/18/18 This is follow-up visit for this patient with a history of severe and chronic low back pain secondary to lumbar degenerative disc diseases, lumbar herniated disc disease , lumbar spondylosis with facet arthropathy,sacroiliitis ,Right trechonteric bursitis Her pain is controlled between the interventional pain procedure with the pain medication ,Patients currently on [place] 7.5/325 every 12 hours and Motrin 800 mg twice a day Patient denies any side effects of the medication, denies excessive drowsiness or sleepiness, denies suicidal ideation, and reports that the current pain medication is helping to control the pain ,and improve activity of daily living Patient denies any motor or sensory deficit , patient denies any fever or night sweats, denies any change in the bowel movements or urination, is currently complaining of severe low back pain mainly in the right hip area Physical Examinations : 1-Constitutional : Cooperative , not in acute distress . 2-HEENT : nech ; supple , no Lymphadenopathy , no Thyromegaly , normal thyroid size . eyes : no ptosis , no icterus, no photophobia . ENT : normal of hearing , normal oropharynx , no Thrush . 3- Respiratory : Chest clear to auscultations Bilaterally , no wheezing , no Rhonchi . 4- Cardiovascular : regular rate and rhythem , S1 , S2 , no S3 , no S4. 5- Gastrointestinal : abdomen soft no tenderness , bowel sounds positive all four quadrents , no organomegally . 6- Genitourinary : Defferred . 7- neurologic: Cranial nerve II to XII intact , no focal neurological deffecit . 8- Psychatric: alert , oriented X 3 , appropriate affect , intact judgment and insight . 9- Lymphatic : no Lymphadenopathy . 10- Musculoskeltal : exams of the cervical spine = motor strength normal bilateral upper extremities exams of the Lumber spine =motor strength lower extremities ,thigh and legs .5/5 deep tendon reflexes : abbi l Knee Jerk , normal ankle Jerk . lumber facet Loading Test positive strait leg raising test positive at 30 degree , RT ,LT , Fabere test positive RT and positive LT . Range of motion: Range of motion in flexion of the lumbar spine 30 degrees Range of motion range of motion of extension of the lumbar spine 10 tenderness over the Right trochanteric bursa, Assessment and plan = Chronic low back pain secondary to lumbar degenerative disc disease , lumbar spondylosis with facet arthropathy without myelopathy , lumbar herniated disc disease Acute right sacroiliitis, trechonteric bursitis chronic and current use of high-risk medication (Opioids). The patient was counseled about risk of opioid use, psychological risk associated with opioids and was orally counseled to not overuse , divert,or sell dictations to take medications as prescribed only , and to restore medication in safe location , the patient counseled against driving while using narcotic medications, and also not to use alcohol or any illicit recreational drugs, patient's verbalized understanding that the lack of compliance will result in failure to renew narcotic prescription and possible discharge from the clinic - diagnoses, prognosis, and treatment options including but not limited to physical therapy, surgical interventions, interventional therapies , and medication management including narcotics and adjuvant medication were discussed with the patient and all the questions answered Prescription refill for [place] 7.5/325 every 12 hours dispense 60, Motrin 800 mg twice a day dispense 60 with one refill patient could benefit from right trochanteric bursa steroid injections PQRS Measure Charge Sheet Measure #130: Documentation of Current Meds in Medical Chart: Patient's medications documented in chart Measure #226: Tobacco Use: Screen & Cessation Intervention: Pt screened for tobacco use AND intervention given Measure #111: Pneumonia Vaccination: Pneumococcal vaccine administered or previously received Measure #47: Advance Care Plan: Advance care planning discussed & documented, plan or surrogate given Measure #412: Opioid Treatment Agreement: Documented signed opioid trtmnt agreemnt min once during opioid trtmnt Measure #408: Opioid Therapy Follow-up Evaluation: Patient had f/u eval minimum every 3 months during opioid therapy Measure #317: Preventitive Care & Scrn High Bld Press & F/U: Normal blood pressure, f/u not required Measure #128: Body Mass Index (BMI) Screening & Follow-up: BMI documented ABOVE normal parameters - f/u documented Measure #131: Pain Assessment & Follow-up: Pain positive & plan documented, Follow-up scheduled Measure #431: Unhealthy Alcohol Use Preventative Care & Scrn: Patient not identified as an unhealthy alcohol user PQRS Narrative: Objective - Vital Signs Vital signs: Vital Signs Temp Pulse 91 07/18/18 12:02 Resp 16 07/18/18 12:02 BP 112/74 07/18/18 12:02 Pulse Ox Intake & Output 05/19/19 05/20/19 05/20/19 18:59 06:59 18:59 Weight 104.326 kg
== END | disposition home or self-care (01) ==
LOC: PNWHC3 11:39
PROVIDERS: ATTEND Specialist
DX: G89.29 Other chronic pain (principal); M51.26 Other intervertebral disc displacement, lumbar region; M51.36 Other intervertebral disc degeneration, lumbar region; M47.816 Spondylosis without myelopathy or radiculopathy, lumbar region; M46.96 Unspecified inflammatory spondylopathy, lumbar region; M46.1 Sacroiliitis, not elsewhere classified; M70.60 Trochanteric bursitis, unspecified hip; Z79.891 Long term (current) use of opiate analgesic
CPT/HCPCS: 99211

== ENCOUNTER 2018-07-27 06:01 | Day surgery (SDC) | payer OTHER ==
[2018-07-26 09:08] VITALS: BMI 39.4
[2018-07-27 06:16] VITALS: RESP 18; TEMP 96.3
[2018-07-27] MEDS ORDERED: LACTATED RINGERS 1,000 ML IV ONE (06:21)
[2018-07-27] MEDS ORDERED: LIDOCAINE 1% 20 ML VIAL (10MG/ML) FOR IV START INTRADERMA ONE (06:21)
[2018-07-27] MEDS ORDERED: LACTATED RINGERS 1,000 ML IV SCH (06:45)
--- NOTE | 2018-07-27 07:08 | P.PCN ---
Date of Procedure: 07/27/18 Procedure(s) Performed: Pre OP diagnoses: Right trochanteric bursitis Postoperative diagnosis: Right trochanteric bursitis. Operation: Right trochanteric bursa steroid injection under fluoroscopy guidance. Anesthesia: moderate sedation with IV Versed 2mg . Complications: none . Description of the procedure: patient had history of severe low back pain and hip pain secondary to trochanteric bursitis for this reason patient was a good candidate to have right trochanteric bursa steroid injection which hopefully it will help his pain, risks and benefits of the procedure including but not limited to risk of infection and bleeding. Patient was taken to the operating room placed in supine position or standard monitors applied patient and after induction of anesthesia the back and the hip area prepped with chlorhexidine 3 times, and under sterile technique using 25-gauge needle for skin and subcutaneous tissue infiltration was first admitted the right trochanteric bursa injection at 22- gauge 5 inches long Quincke-type spinal needle advanced slowly under fluoroscopy and placed in the right trochanteric bursa needle placement confirmed with AP and lateral view and after appropriate needle placement confirmed under fluoroscopy 4 ML of Marcaine 0.5% mixed with 40 mg of Depo-Medr ol injected ,after negative aspiration for heme and there was no CSF and there was no paresthesia during the injection and needle removed and a dressing applied and the same procedure repeated at the left side, patient tolerated the procedure well without any complication and she will follow up with the pain clinic in a few weeks and patient discharged home in stable condition
[2018-07-27] MEDS ORDERED: IV FLUID CONTINUATION 1,000 ML IV ONE ×2 (07:13)
[2018-07-27 07:31] VITALS: BP 119/77; PULSE 71
--- NOTE | 2018-07-27 08:46 | FL ---
Fluoroscopy INDICATION: Pain FINDINGS: Fluoroscopy time: 5 seconds. Images obtained: 1. IMPRESSIONS: 1. Documentation of fluoroscopy.
== END 2018-07-27 07:41 | disposition home or self-care (01) ==
LOC: ORPAIN 06:01
PROVIDERS: ATTEND Specialist
DX: M70.61 Trochanteric bursitis, right hip (principal); M47.816 Spondylosis without myelopathy or radiculopathy, lumbar region
CPT/HCPCS: 20610; J2250; J1030; 99152

== ENCOUNTER → 2018-09-08 | Outpatient (CLI) | payer OTHER ==
--- NOTE | 2018-09-08 10:54 | USB ---
Reason for exam: follow-up at short interval from prior study. History: Patient is postmenopausal. Benign excisional biopsy of the left breast. Physical Findings: Nurse did not find any significant physical abnormalities on exam. US Breast Limited RT Right limited breast ultrasound including focal area of concern, retroareolar and axilla demonstrates a 0.2 x 0.1 x 0.2cm hypoechoic lesion at 9 o'clock previously marked at 11 o'clock 0.3 x 0.2cm, a 0.3 x 0.3 x 0.2cm cystic lesion at 11 o'clock, a 0.3 x 0.3 x 0.3cm hypoechoic lesion at the axillary tail/11 o'clock, appears as 11 o'clock 0.3 x 0.3 x 0.3cm. These results were verbally communicated with the patient and result sheet given to the patient on 09/08/18. ASSESSMENT: Probably benign, BI-RAD 3 RECOMMENDATION: Follow-up diagnostic mammogram of both breasts in 6 months. Ultrasound of the right breast in 6 months.
== END | disposition home or self-care (01) ==
LOC: RADUSWWP 09:34
PROVIDERS: ATTEND Family Medicine
DX: N64.9 Disorder of breast, unspecified (principal)

== ENCOUNTER → 2018-09-27 | Outpatient (CLI) | payer OTHER ==
[2018-09-27 13:18] VITALS: RESP 16
[2018-09-27 13:22] VITALS: BP 129/69; PULSE 78
--- NOTE | 2018-09-27 13:29 | P.PN ---
Subjective Progress Note Date: 09/27/18 This is a 61-year-old lady with history of chronic lower back pain due to lumbar spondylosis without myelopathy. The patient had right greater trochanter steroid injection a few weeks ago which has improved her pain in the right leg significantly. The patient's pain is well controlled by combination of i nterventional pain procedures and [place] 7.5 mg twice a day as needed. She also takes Motrin 800 mg 1-2 pills a day. The patient denies any new symptoms since last time she was seen in our clinic. The patient injured her left shoulder recently and she has seen orthopedic surgeon who ordered an MRI on the left shoulder pending results. Today, pt denies new-onset weakness, bowel/bladder incontinence, or any other signs or symptoms of cauda equina syndrome. There are no signs of acute intoxication, and no indications of medication diversion or overuse. In addition to above, 13-point review of systems is also negative for chest pain, shortness of breath, changes in vision, changes in hearing, new onset weakness, abdominal pain, diarrhea, extreme fatigue, malaise, fever, skin changes, homicidal or suicidal ideation, or bowel or bladder incontinence. Vital Signs: Reviewed in EMR Gen: AAOx3, NAD HEENT: PERRLA,hearing grossly normal Pulm: resp unlabored,CTA Heart:S1,S2, No Mur Neck: supple, trachea midline Neuro exam of the lower extremities: Decreased knee reflex on the right side and normal on the left side, absent ankle reflex bilaterally. She has normal muscle strength in the lower extremities bilaterally symmetrically Straight leg raising test: Negative bilaterally Jamie's test: Range of motion of the lumbar spine: Facet loading test: Tenderness in the paravertebral musculature: Positive tenderness in the lumbar paravertebral musculature bilaterally Neuro: CN II-XII grossly intact, Imaging: Reviewed in EMR/chart Assessment: Lumbar spondylosis without myelopathy Morbid obesity 2 recent injury on the left shoulder Plan: 1. Explanation: Opioid and psychological risk scores were reviewed. Diagnoses, prognoses, and multiple treatment options including but not limited to physical therapy, interventional therapies, adjuvant medical therapies, narcotic medication therapies, and surgery were discussed with the patient and all questions were answered to the patient's satisfaction. 2. Opioid agreement: Signed with the patient and the patient is warned not to use opioids while driving or before driving and not to combine opioids with benzodiazepines or alcohol. 3. Counseling: The patient was counseled extensively on SMOKING CESSATION, BODY MASS INDEX, EXERCISE. Specifically, the patient was instructed regarding the importance of smoking cessation, obesity, and exercise in the context of both chronic pain and overall health. 4. Procedures: None 5. Consultations: None 6. Investigations: None 7. Medications: [place] 7.5 mg twice a day and Motrin 800 mg 1-2 times/ day. I encouraged the patient to decrease her usage of Motrin to avoid its side effects from the stomach and kidneys. pep 8. Disposition: Return to clinic in 8 weeks 9. Maps were reviewed and were appropriate. PQRS measures: 1-Patient's medications are documented in the chart. 2-Tobacco use is negative, counseling given 3-Patient has had a pneumococcal vaccine. 4-Advanced care planning discussed, patient unable to give 5-Opioid contract signed with the patient. 6-Pain positive, follow-up visit or procedure scheduled 7-Patient's blood pressure measured and documented above/ normal limits. The patient will follow up with his primary care physician. 8-Patient's weight was measured, and body mass index ABOVE the normal limits, and counseling was done. Patient instructed to follow up with PCP. 9-Patient WAS NOT identified as an unhealthy alcohol user. Controlled Substance Measures Is patient prescribed a controlled substance at discharge?: Yes When asked, does pt state using other controlled substances?: No If prescribed controlled substance>3 days was MAPS reviewed?: Yes If Rx opioid, was Start Talking consent form obtained?: Yes If opioid is for acute pain is fill amount 7 days or less?: No Was information provided regarding opioid addiction?: Yes Objective - Vital Signs Vital signs: Vital Signs Temp Pulse 78 09/27/18 13:18 Resp 16 09/27/18 13:18 BP 129/69 09/27/18 13:18 Pulse Ox 97 09/27/18 13:18 Intake & Output 09/26/18 09/27/18 09/27/18 18:59 06:59 18:59 Weight 108.862 kg
== END ==
LOC: PNWHC3 12:57
PROVIDERS: ATTEND Anesthesiology
DX: M47.816 Spondylosis without myelopathy or radiculopathy, lumbar region (principal); E66.01 Morbid (severe) obesity due to excess calories; S49.92XA Unspecified injury of left shoulder and upper arm, initial encounter; Z71.6 Tobacco abuse counseling; Z68.41 Body mass index [BMI] 40.0-44.9, adult
CPT/HCPCS: 99211

== ENCOUNTER → 2018-10-04 | Outpatient (CLI) | payer OTHER ==
--- NOTE | 2018-10-04 11:20 | MR ---
EXAMINATION TYPE: MR shoulder LT wo con DATE OF EXAM: 10/04/2018 COMPARISON: Outside x-ray 09/22/2018 HISTORY: Left shoulder pain TECHNIQUE: Multiplanar, multisequence imaging of the left shoulder is performed without contrast. FINDINGS: Exam limited by motion artifact. Bicipital tendon is well situated the bicipital groove and there appears to be increased fluid surrou nding the tendon compatible tendinosis. There is a small joint effusion. Hypertrophic change of the AC joint noted. There is impingement supraspinatus tendon and muscle. Ther e is diffuse increased signal throughout the distal margin of the supraspinatus tendon extending a le ngth of 1.4 cm. Ill definition of the anterior fibers of the distal margin of the tendon compatible w ith partial tear measuring 1 cm. Infraspinatus and subscapularis tendons are intact. Bony labrum are intact. Inferior glenohumeral ligament is intact. IMPRESSION: 1. Bicipital tendinosis 2. Impingement secondary to AC joint arthropathy with findings compatible with tendinosis of the dist al 1.4 cm of the supraspinatus tendon. There is a 1 cm partial tear without evidence of retraction in volving the anterior fibers of the supraspinatus tendon near the insertion. 3. Small glenohumeral joint effusion
== END | disposition home or self-care (01) ==
LOC: RADMRIMAIN 09:49
PROVIDERS: ATTEND Orthopaedic Surgery
DX: M67.814 Other specified disorders of tendon, left shoulder (principal); M25.412 Effusion, left shoulder

== ENCOUNTER → 2018-11-15 | Outpatient (CLI) | payer OTHER ==
[2018-11-15 14:10] VITALS: BP 143/87; PULSE 98; RESP 18
--- NOTE | 2018-11-17 05:16 | P.PAINPG ---
Subjective Progress Note Date: 11/15/18 This is follow-up visit for this 63 years old female with a history of severe and chronic low back pain secondary to , lumbar herniated disc disease , lumbar spondylosis with facet arthropathy, right trochanteric bursitis, right sacroiliitis And the pain management between interventional pain management and medication therapy Patients currently on [place] 7.5/325 every 12 hours and Motrin 800 mg twice a day Patient denies any side effects of the medication, denies excessive drowsiness or sleepiness, denies suicidal ideation, and reports that the current pain medication is helping to control the pain ,and improve activity of daily living Patient denies any motor or sensory deficit , patient denies any fever or night sweats, denies any change in the bowel movements or urination, is currently complaining of severe low back pain mainly in the right buttock area with radiation to the buttock Also patient complaining of severe left shoulder pain and she is being evaluated by orthopedic surgeon for possible surgical interventions Objective - Vital Signs Vital signs: Vital Signs Temp Pulse 98 11/15/18 13:03 Resp 18 11/15/18 13:03 BP 143/87 11/15/18 13:03 Pulse Ox 94 L 11/15/18 13:03 - Exam Physical Examinations : -Constitutiona : Cooperative , not in acute distress . -HEENT : nech : supple , no Lymphadenopathy , normal thyroid size . eyes : no ptosis , no icterus, no photophobia. - neurologic : Cranial nerve II to XII intact , no focal neurological deffecit . -psychatric : alert , oriented X 3 , appropriate affect , intact judgment and insight . -Lymphatic : no Lymphadenopathy . - musculoskeltal : Severe pain in the left shoulder, and limited ability for abduction and abduction of the left shoulder Lumber spine moter stegnth lower extremities ,thigh and legs 5/5 Right side , 5/5 Left side . Assessment and Plan Plan: Assessment and plan= lumbar spondylosis with lumbar facet arthropathy, lumbar herniated disc disease, right trochanteric bursitis Left shoulder arthralgia. Patient pain control between the interventional pain therapy and medications therapy she is currently on Motrin 800 mg twice a day when necessary and [place] 7.5/325 every 12 hours when necessary, she denies any side effect of the medication she denies any excessive drowsiness or sleepiness, and patient given prescription refills for her medication for 2 months patient will have arthroscopic shoulder surgery in the next few days to be done by Dr. Prasad (orthopedic surgeon ) Time with Patient: Less than 30 PQRS Measure Charge Sheet Measure #130: Documentation of Current Meds in Medical Chart: Patient's medications documented in chart Measure #226: Tobacco Use: Screen & Cessation Intervention: Pt screened for tobacco use AND intervention given Measure #111: Pneumonia Vaccination: Pneumococcal vaccine administered or previously received Measure #47: Advance Care Plan: Advance care planning discussed & documented, pt chose/unable to give Measure #412: Opioid Treatment Agreement: Documented signed opioid trtmnt agreemnt min once during opioid trtmnt Measure #408: Opioid Therapy Follow-up Evaluation: Patient had f/u eval minimum every 3 months during opioid therapy Measure #317: Preventitive Care & Scrn High Bld Press & F/U: Pre-hypertensive or hypertensive BP documented, pt will f/u with PCP Measure #128: Body Mass Index (BMI) Screening & Follow-up: BMI documented ABOVE normal parameters - f/u documented Measure #131: Pain Assessment & Follow-up: Pain positive & plan documented, Follow-up scheduled Measure #431: Unhealthy Alcohol Use Preventative Care & Scrn: Patient not identified as an unhealthy alcohol user PQRS Narrative: Smoking Status Former smoker Narcotic Agreement Date Signed 09/27/18 Blood Pressure 143/87 Pain Intensity [Right Shoulder 9 ] Scale Used Numeric (1 - 10) Hx Alcohol Use (MH) Yes: OCCASIONAL. Home Medications: Ambulatory Orders Aspirin 81 mg PO DAILY 08/11/13 Pantoprazole [Protonix] 40 mg PO QAM 08/12/15 cloNIDine HCL [Catapres] 0.1 mg PO BID 01/27/18 Losartan-Hctz 50-12.5 mg [Hyzaar 50-12.5] 1 tab PO DAILY 03/24/18 Citalopram Hydrobromide [CeleXA] 20 mg PO DAILY 04/06/18 HYDROcodone/APAP 7.5-325MG [[place] 7.5-325] 1 tab PO Q12HR PRN 30 Days #30 tab 11/15/18 Ibuprofen [Motrin] 800 mg PO BID PRN #60 tab 11/15/18 Multivitamins, Thera [Multivitamin (formulary)] 1 tab PO DAILY 11/16/18 Vitamin B Complex 1 each PO DAILY 11/16/18 Controlled Substance Measures - Controlled Substance Measures Is patient prescribed a controlled substance at discharge?: Yes When asked, does pt state using other controlled substances?: No If prescribed controlled substance>3 days was MAPS reviewed?: Yes If Rx opioid, was Start Talking consent form obtained?: Yes If opioid is for acute pain is fill amount 7 days or less?: No Was information provided regarding opioid addiction?: Yes
== END | disposition home or self-care (01) ==
LOC: PNWHC3 12:34
PROVIDERS: ATTEND Specialist
DX: G89.29 Other chronic pain (principal); M51.26 Other intervertebral disc displacement, lumbar region; M47.816 Spondylosis without myelopathy or radiculopathy, lumbar region; M46.96 Unspecified inflammatory spondylopathy, lumbar region; M70.61 Trochanteric bursitis, right hip; M25.512 Pain in left shoulder; Z87.891 Personal history of nicotine dependence; Z79.1 Long term (current) use of non-steroidal anti-inflammatories (NSAID); Z79.899 Other long term (current) drug therapy
CPT/HCPCS: 99211

== ENCOUNTER 2018-11-18 06:15 | Day surgery (SDC) | payer OTHER ==
[2018-11-16 09:09] VITALS: BMI 41.1
--- NOTE | 2018-11-17 11:32 | HP ---
HISTORY AND PHYSICAL CHIEF COMPLAINT: Left shoulder pain. HISTORY OF PRESENT ILLNESS: The patient is a 63-year-old, right-hand dominant, retired female who presents with progressive left shoulder pain over the past several months. She is having pain with overhead use and at night. She has tried conservative measures without much relief. PAST MEDICAL HISTORY: Significant for upk-vmeecrh-pfvtarfke diabetes, hypertension, arthritis, COPD, depression, reflux disease. PAST SURGICAL HISTORY: Significant for previous right shoulder arthroscopy, left total hip arthroplasty, previous cervical fusion. FAMILY HISTORY: Significant for heart disease and cancer. SOCIAL HISTORY: Significant for 1/4 pack per day tobacco use. REVIEW OF SYSTEMS: Sixteen-point review of systems otherwise reviewed and is noncontributory. CURRENT MEDICATIONS: 1. Aspirin. 2. Catapres. 3. Celexa. 4. Losartan. 5. Protonix. 6. Ibuprofen. ALLERGIES: She denies drug allergies. PHYSICAL EXAMINATION: On examination, the patient is approximately 5 feet 4 inches, 240 pounds of endomorphic habitus. HEENT exam is nonfocal. Neck is supple. On examination of her left shoulder, she is tender about the anterior subacromial space. She has moderate subacromial crepitus. Active range of motion forward elevation 145 degrees, external rotation with arm at side 45 degrees, internal rotation to L3. Motor strength is 5 minus over 5 for external rotation with the arm at side, 4/5 for abduction. Impingement test, Neer test and Speed test are positive. Her distal neurovascular exam appears intact in the left upper extremity. MRI report 10/04/2018 left shoulder shows significant biceps tendinosis along with supraspinatus and infraspinatus tears and AC joint degenerative changes. IMPRESSION: Left acute rotator cuff tear/bicipital tendinosis. RECOMMENDATIONS: I talked to the patient at length regarding her condition and treatment options. At this point, she is quite symptomatic and opts to proceed with surgery. We will plan to proceed with arthroscopic evaluation with probable subacromial decompression, probable rotator cuff repair, possible biceps tenotomy as well as distal clavicular resection. Risks and benefits were discussed at length in layman's terms. MMODL / IJN: [id number] /
[~2018-11-18 06:15] MED LIST changes: -ALPRAZolam 0.25 MG TAB PO PRN; -ALPRAZolam 0.5 MG TAB PO PRN; -ASPIRIN 325 MG TAB PO STA; -ATORVASTATIN 80 MG TAB PO STA; +DEXAMETHASONE SOD PHOSPHATE 10 MG/ML 1 ML VIAL IV ONE; +HYDROmorphone 0.5 MG/0.5 ML SYRINGE IVP PRN; +LACTATED RINGERS 1,000 ML IV SCH; +LIDOCAINE 1% 20 ML VIAL (10MG/ML) FOR IV START INTRADERMA PRN; -NITROGLYCERIN SL TABS 0.4 MG TAB SUBLINGUAL PRN; +ONDANSETRON 4 MG/2 ML VIAL IVP ONE; -SODIUM CHLORIDE 0.9% 1,000 ML in EMPTY BAG 1 BAG IV ONE
[2018-11-18] MEDS ORDERED: fentaNYL (PF) 50 MCG/ML 2 ML AMP IV ONE (07:25)
[2018-11-18] MEDS ORDERED: MIDAZOLAM (PF) 2 MG/2 ML VIAL IV ONE (07:25)
[2018-11-18] MEDS ORDERED: GLYCOPYRROLATE 0.2 MG/ML 2 ML VIAL ONE (07:55)
[2018-11-18] MEDS ORDERED: ROCURONIUM BROMIDE 10 MG/ML 10 ML VIAL IV ONE (07:55)
[2018-11-18] MEDS ORDERED: PHENYLEPHRINE-0.9% NACL SYG 1 MG/10 ML SYRINGE ONE (07:55)
[2018-11-18] MEDS ORDERED: NEOSTIGMINE 1 MG/ML 10 ML VIAL ONE (07:55)
[2018-11-18] MEDS ORDERED: LIDOCAINE 1% INJ 10MG/ML (20 ML MDV) ONE (07:55)
[2018-11-18] MEDS ORDERED: PROPOFOL 10 MG/ML 20 ML VIAL IV ONE (07:55)
[2018-11-18] MEDS ORDERED: ROPIVACAINE 5 MG/ML 30 ML VIAL ONE (07:55)
[2018-11-18] MEDS ORDERED: DEXAMETHASONE SOD PHOSPHATE 4 MG/ML 1 ML VIAL ONE (07:55)
[2018-11-18] MEDS ORDERED: SUCCINYLCHOLINE CHLORIDE 100 MG/5 ML SYR IV ONE (07:55)
--- NOTE | 2018-11-18 08:59 | P.ANPRN ---
Procedure Note - Anesthesia - Nerve Block Performed Left Interscalene Single Time Out Performed: Yes Date of Procedure: 11/18/18 Procedure Start Time: : Procedure Stop Time: :30 Location of Patient Procedure: PreOp Indication: Acute Post-Operative Pain, Analgesia, Requested by Surgeon Sedation Type: Sedate with meaningful contact maintained Preparation: Sterile Prep Position: Supine Needle Types: Pajunk Needle Gauge: 21 Ultrasound used to observe medication spread: Yes Injectate: 0.5% Ropivacaine (see comment for volume) Blood Aspirated: No Pain Paresthesia on Injection Noted: No Resistance on Injection: Normal Image Stored and Saved: Yes Events: Uneventful and Well Tolerated
[2018-11-18] MEDS ORDERED: EPINEPHrine (PF) 1 ML in SODIUM CHLORIDE 0.9% IRRIGATIO 3,000 ML IRRIGATION ONE ×8 (09:03→09:04)
[2018-11-18] MEDS ORDERED: LACTATED RINGERS 1,000 ML IV ONE (09:17)
--- NOTE | 2018-11-18 09:26 | P.OP ---
Date of Procedure: 11/18/18 Preoperative Diagnosis: Left shoulder impingement/bicipital tendinosis/acromion clavicular joint arthritis Postoperative Diagnosis: Same in addition to partial thickness bursal surface rotator cuff tear Procedure(s) Performed: Left shoulder arthroscopic subacromial decompression/distal clavicular resection/biceps tenotomy/rotator cuff debridement Anesthesia: MARYCARMEN [facility] Surgeon: Stewart Jaimes Estimated Blood Loss (ml): 10 Pathology: none sent Condition: stable Disposition: PACU Indications for Procedure: The patient's 63-year-old female who presents with progressive left shoulder pain despite conservative measures. A discussion of the risks and benefits of operative intervention versus continued conservative measures made with patient. She opted to proceed with surgery. Operative risks to include infection, neurovascular injury, development of blood clots, possible incomplete resolution of symptoms, possible worsening symptoms and need for subsequent procedures was discussed. Informed consent was obtained. Operative Findings: As below Description of Procedure: The patient was brought to the operating room, and after induction of general anesthesia was placed in a beachchair position. A preoperative interscalene block was placed for postoperative analgesia. I examined the left left shoulder. There was no gross block to passive motion or gross glenohumeral instability. The [] upper extremity was prepped and draped in normal fashion. The bony outlines the acromion, distal clavicle, and coracoid process were outlined with a skin marker. The glenohumeral joint was inflated with 50 mL of saline utilizing a spinal needle from posterior approach. A posterior portal was made through a 5 mm skin incision 1 cm medial and inferior to the posterior lateral border time. A blunt trocar was used to easily into the joint. Diagnostic arthroscopy was performed. An anterior portal was made just lateral to the coracoid process entering the joint above the subscapularis tendon. The subscapularis tendon appeared to be intact. Anterior labrum was intact. The inferior recess was inspected. Grade 2-3 chondral changes were noted diffusely in the glenohumeral joint. The posterior labrum was intact. There was a high- grade partial-thickness tear of the long head of the biceps involving interarticular portion. It was elected to proceed with release at this point. This was released from the superior labrum with electrocautery and was allowed to retract to the bicipital groove. On inspection the rotator cuff it appeared to be intact on the articular surface. The arthroscope was placed into the subacromial space. A lateral portal was made 2 centimeters inferior to the anterior lateral border of the acromion. The soft tissue on the undersurface of the acromion was debrided with a motorized shaver and electrocautery clearly defining the anterior medial and lateral borders as well as the distal clavicle. An anterior inferior acromioplasty was performed with a motorized nakia st arting anterolateral, then extending this posteriorly, then extending this medially. I converted to a flat acromion and this was verified in the posterior and lateral viewing portals. The greater tuberosity was lightly decorticating with a shaver down to a bleeding bony surface. The distal 5 mm of the clavicle was resected with a motorized bur. The rotator cuff was inspected on the bursal surface. A partial thickness bursal surface tear was noted involving the anterior aspect the supraspinatus. This was debrided back to stable base with motorized shaver. This involved approximately 2-3 mm of the thickness. The arthroscope was then removed. The portals were closed with simple 3-0 nylon sutures. A sterile dressing was applied in addition to a sling. The patient was then awoken from general anesthesia and transferred to recovery room in good condition. Blood loss was estimated at 10 mL. No complications were incurred. Sponge and needle counts were correct in the case.
[2018-11-18 09:32] VITALS: TEMP 97.4
[2018-11-18 09:54] VITALS: RESP 16
[2018-11-18 10:44] VITALS: BP 104/71; PULSE 75
== END 2018-11-18 11:09 | disposition home or self-care (01) ==
LOC: OR 06:15
PROVIDERS: ATTEND Orthopaedic Surgery
DX: M75.112 Incomplete rotator cuff tear or rupture of left shoulder, not specified as traumatic (principal); M75.22 Bicipital tendinitis, left shoulder; M19.012 Primary osteoarthritis, left shoulder; M75.42 Impingement syndrome of left shoulder; S46.112A Strain of muscle, fascia and tendon of long head of biceps, left arm, initial encounter; I10 Essential (primary) hypertension; J44.9 Chronic obstructive pulmonary disease, unspecified; E66.9 Obesity, unspecified; E78.5 Hyperlipidemia, unspecified; F32.9 Major depressive disorder, single episode, unspecified; E11.9 Type 2 diabetes mellitus without complications; K21.9 Gastro-esophageal reflux disease without esophagitis; Z98.1 Arthrodesis status; Z96.642 Presence of left artificial hip joint; Z98.890 Other specified postprocedural states; Z79.82 Long term (current) use of aspirin; Z79.1 Long term (current) use of non-steroidal anti-inflammatories (NSAID); Z79.899 Other long term (current) drug therapy; Z87.891 Personal history of nicotine dependence; Z82.49 Family history of ischemic heart disease and other diseases of the circulatory system; Z80.9 Family history of malignant neoplasm, unspecified; Z68.41 Body mass index [BMI] 40.0-44.9, adult; X58.XXXA Exposure to other specified factors, initial encounter
CPT/HCPCS: 64415; 76942; 29824; 29823; 29826; J1100 ×2; J2710; J0690; J2405; J0171; J2001; J3010; J2795; J2370; J0330; J2704; J2250

== ENCOUNTER → 2019-01-12 | Outpatient (CLI) | payer OTHER ==
[2019-01-12 14:19] VITALS: BP 131/85; RESP 16
--- NOTE | 2019-01-17 15:21 | P.PAINPG ---
Subjective Progress Note Date: 01/12/19 This is a follow-up visit for this 63 year old female with a history of severe and chronic low back pain secondary to lumbar herniated disc disease , lumbar spondylosis with facet arthropathy, right trochanteric bursitis, right sacroiliitis. Her pain is primarily located in the right low back, radiating to right lower extremity- along the lateral thigh, lateral calf, top of foot and into her big toe. Pain is worse with standing, better with ice and sitting as well as medications. Her pain has been well controlled by interventional pain management treatments and medication therapy Patients currently on Denison 7.5/325 every 12 hours and Motrin 800 mg twice a day Patient denies any side effects of the medication, denies excessive drowsiness or sleepiness, denies suicidal ideation, and reports that the current pain medication is helping to control the pain ,and improve activity of daily living Patient denies any motor or sensory deficit , patient denies any fever or night sweats, denies any change in the bowel movements or urination Review of systems is negative for chest pain, shortness of breath, new onset weakness, numbness/tingling, abdominal pain, malaise, fever, night sweats, chills, homicidal or suicidal ideation, or bowel or bladder incontinence. Objective Physical exam: Vitals: Reviewed in EMR GENERAL: Well appearing, in no acute distress, obese PSYCH: Mood and affect is appropriate. Awake, alert, and oriented SKIN: Skin color, texture, turgor normal, no rashes or lesions HEENT: Normocephalic, atraumatic. EOM intact CV: No pedal edema RESP: Respirations are unlabored, no audible wheezing GI: Abdomen non-distended MUSCULOSKELETAL: Bilateral lower extremity strength is normal and symmetric. No atrophy or tone abnormalities are noted. Lumbar spine: Straight leg raising in the sitting position is positive on the right side for radicular pain. Tenderness to palpation over the lumbar spine and paraspinous muscles bilaterally. Extremities: Peripheral joint ROM is full and pain free without obvious instability or laxity in all four extremities. No edema or skin discolorations noted. NEUR: Bilateral lower extremity coordination and muscle stretch reflexes are physiologic and symmetric. Negative clonus bilaterally. No loss of sensation is noted. Imaging: MRI lumbar spine done on 03/09/2016 reviewed which shows moderate right-sided neuroforaminal stenosis at L2-3, moderate bilateral neural foraminal stenosis at L5-S1 with possible encroachment on bilateral L5 nerve roots. Assessment and Plan Plan: Assessment and plan= lumbar spondylosis with lumbar facet arthropathy, lumbar herniated disc disease, lumbar radiculopathy right trochanteric bursitis Left shoulder arthralgia. Patient pain control between the interventional pain therapy and medications therapy she is currently on Motrin 800 mg twice a day when necessary and Denison 7.5/325 every 12 hours when necessary, she denies any side effect of the medication she denies any excessive drowsiness or sleepiness, we discussed weaning of opioids, patient is amenable to this. Prescriptions were given for Denison 7.5/3 2545 tablets for the next month, 30 tablets for the month after. She understands that the plan is to continue to reduce her opioids. She is amenable to this plan. She is also started on gabapentin 300 mg 3 times a day to help with her radicular symptoms, titration schedule was provided to patient. Urine drug screen obtained today We will schedule right sided L5-S1 transforaminal epidural steroid injection. On review of records, it does not appear that the patient has had this procedure before. Patient was counseled on the need for exercise, weight loss and the relationship between obesity and chronic pain. Follow-up: For above-mentioned procedure and in 8 weeks for medication management Time with Patient: Less than 30 Objective - Vital Signs Vital signs: Vital Signs Temp Pulse Resp 16 01/12/19 14:15 BP 131/85 01/12/19 14:15 Pulse Ox 99 01/12/19 14:15 PQRS Measure Charge Sheet Measure #130: Documentation of Current Meds in Medical Chart: Patient's medications documented in chart Measure #226: Tobacco Use: Screen & Cessation Intervention: Pt screened for tobacco use AND intervention given Measure #111: Pneumonia Vaccination: Pneumococcal vaccine NOT administered or previously given Measure #47: Advance Care Plan: Advance care planning discussed & documented, pt chose/unable to give Measure #412: Opioid Treatment Agreement: Documented signed opioid trtmnt agreemnt min once during opioid trtmnt Measure #408: Opioid Therapy Follow-up Evaluation: Patient had f/u eval minimum every 3 months during opioid therapy Measure #317: Preventitive Care & Scrn High Bld Press & F/U: Normal blood pressure, f/u not required Measure #128: Body Mass Index (BMI) Screening & Follow-up: BMI documented ABOVE normal parameters - f/u documented Measure #131: Pain Assessment & Follow-up: Pain positive & plan documented, Follow-up scheduled Measure #431: Unhealthy Alcohol Use Preventative Care & Scrn: Patient not identified as an unhealthy alcohol user PQRS Narrative: Smoking Status Current some day smoker Narcotic Agreement Date Signed 09/27/18 Blood Pressure 131/85 Pain Intensity [Right Hip] 2 Scale Used Numeric (1 - 10) Hx Alcohol Use (MH) Yes: OCCASIONAL. Home Medications: Ambulatory Orders Aspirin 81 mg PO DAILY 08/11/13 Pantoprazole [Protonix] 40 mg PO QAM 08/12/15 cloNIDine HCL [Catapres] 0.1 mg PO BID 01/27/18 Losartan-Hctz 50-12.5 mg [Hyzaar 50-12.5] 1 tab PO DAILY 03/24/18 Citalopram Hydrobromide [CeleXA] 20 mg PO DAILY 04/06/18 HYDROcodone/APAP 7.5-325MG [Denison 7.5-325] 1 tab PO Q12HR PRN 30 Days #30 tab 11/15/18 Ibuprofen [Motrin] 800 mg PO BID PRN #60 tab 11/15/18 Multivitamins, Thera [Multivitamin (formulary)] 1 tab PO DAILY 11/16/18 Vitamin B Complex 1 each PO DAILY 11/16/18 Controlled Substance Measures - Controlled Substance Measures Is patient prescribed a controlled substance at discharge?: Yes When asked, does pt state using other controlled substances?: No If prescribed controlled substance>3 days was MAPS reviewed?: Yes If Rx opioid, was Start Talking consent form obtained?: Yes If opioid is for acute pain is fill amount 7 days or less?: No Was information provided regarding opioid addiction?: Yes
== END | disposition home or self-care (01) ==
LOC: PNWHC3 13:23
PROVIDERS: ATTEND Anesthesiology
DX: G89.29 Other chronic pain (principal); M51.16 Intervertebral disc disorders with radiculopathy, lumbar region; M47.816 Spondylosis without myelopathy or radiculopathy, lumbar region; M46.96 Unspecified inflammatory spondylopathy, lumbar region; M70.61 Trochanteric bursitis, right hip; M25.512 Pain in left shoulder; F17.200 Nicotine dependence, unspecified, uncomplicated; Z79.82 Long term (current) use of aspirin; Z79.891 Long term (current) use of opiate analgesic; Z79.899 Other long term (current) drug therapy
CPT/HCPCS: 80307; 99211; G0482

== ENCOUNTER 2019-02-06 06:42 | Day surgery (SDC) | payer OTHER ==
[2019-02-02 14:55] VITALS: BMI 40.3
[~2019-02-06 06:42] MED LIST changes: -DEXAMETHASONE SOD PHOSPHATE 10 MG/ML 1 ML VIAL IV ONE; -HYDROmorphone 0.5 MG/0.5 ML SYRINGE IVP PRN; -LIDOCAINE 1% 20 ML VIAL (10MG/ML) FOR IV START INTRADERMA PRN; -ONDANSETRON 4 MG/2 ML VIAL IVP ONE
[2019-02-06 07:15] VITALS: RESP 16; TEMP 97.4
[2019-02-06] MEDS ORDERED: LIDOCAINE 1% 20 ML VIAL (10MG/ML) FOR IV START INTRADERMA ONE (07:15)
--- NOTE | 2019-02-06 07:47 | P.PCN ---
Date of Procedure: 02/06/19 Procedure(s) Performed: PREOPERATIVE DIAGNOSIS: Lumbar radiculopathy POSTOPERATIVE DIAGNOSIS: Lumbar radiculopathy Attending physician: Lavonne Martinez M.D. PROCEDURE 1. Transforaminal epidural steroid injection under fluoroscopic guidance L5-S1 level, right side 2. Lumbar epidurogram ANESTHESIA: Local with 1% lidocaine 3 ml ; IV sedation with Versed and fentanyl , sedation time 14 minutes PROCEDURE INDICATION: The patient with low back pain and radiculopathy symptoms unresponsive to conservative treatment. Fluoroscopy was used for the procedure and fluoroscopic images were saved to the radiology portion of patient's chart. PROCEDURE DESCRIPTION / TECHNIQUE: The patient was seen and identified in the preoperative area. Risks, benefits, complications, and alternatives were discussed with the patient. The patient agreed to proceed with the procedure and signed the consent. IV was started, and vital signs were stable. Patient was taken to the OR and time out was completed. The patient was placed in the prone position on procedure table and a pillow was placed under the abdomen to reduce lumbar lordosis. The lumbosacral area was prepped and draped in the usual sterile fashion. Vital signs were closely monitored during the procedure. Conscious sedation was used. Using oblique fluoroscopy, the chin of the ``Talha dog and the skin and deeper tissues just below was localized with 1% lidocaine. Subsequently, a 22- gauge 5-inch spinal needle was advanced under a tunneled view fluoroscopic guidance just underneath the chin of the ``Talha dog . Under lateral fluoroscopy, the needle was then advanced to the posterior border of the foramen. After negative aspiration of CSF and blood and with no paresthesias, 1 mL of Isovue-200 contrast dye was injected under live fluoroscopy and there was no evidence of intravascular injection. The injectate solution consisting of 10 mg of dexamethasone with 1 mL of 1% lidocaine was then delivered. The needle was withdrawn intact. At the end of the procedure, skin was cleansed, and bandages were applied. COMPLICATIONS: None COMMENTS: 30 cephalad tilt and 20 of ipsilateral oblique was used to access the L5-S1 right-sided neuroforaminal DISPOSITION / PLANS: The patient was placed in a supine position and transferred to the recovery area in a stable condition for observation. There was no evidence of lower extremity motor or sensory deficit after the procedure. Patient was discharged from the recovery room after meeting discharge criteria. Home discharge instructions were given to the patient by the staff. The patient will follow up in clinic in 2-4 weeks.
[2019-02-06] MEDS ORDERED: IV FLUID CONTINUATION 700 ML IV ONE (07:50)
[2019-02-06 08:17] VITALS: BP 133/85; PULSE 91
--- NOTE | 2019-02-06 08:19 | FL ---
Fluoroscopy INDICATION: Pain FINDINGS: Fluoroscopy time: 20 seconds. Images obtained: 4. IMPRESSIONS: 1. Documentation of fluoroscopy.
== END 2019-02-06 08:23 | disposition home or self-care (01) ==
LOC: ORPAIN 06:42
PROVIDERS: ATTEND Anesthesiology
DX: G89.29 Other chronic pain (principal); M47.26 Other spondylosis with radiculopathy, lumbar region; M51.16 Intervertebral disc disorders with radiculopathy, lumbar region; M46.1 Sacroiliitis, not elsewhere classified; M70.61 Trochanteric bursitis, right hip; F17.200 Nicotine dependence, unspecified, uncomplicated; Z79.82 Long term (current) use of aspirin; Z79.899 Other long term (current) drug therapy
CPT/HCPCS: 64483; J2250; J1100; J3010; Q9966; 99152

== ENCOUNTER → 2019-03-13 | Outpatient (CLI) | payer OTHER ==
[2019-03-13 11:57] VITALS: BP 147/73; PULSE 97; RESP 16
--- NOTE | 2019-03-15 06:21 | P.PAINPG ---
Subjective Progress Note Date: 03/13/19 This is a follow-up visit for this 63 year old female with a history of severe and chronic low back pain secondary to lumbar herniated disc disease , lumbar spondylosis with facet arthropathy, lumbar radiculopathy status post a right- sided transforaminal epidural steroid injection, and that helped her low back pain significantly, Her pain has been well controlled by interventional pain management treatments and medication therapy Patients currently on Freedom 7.5/325 every 12 hours and Motrin 800 mg twice a day Patient denies any side effects of the medication, denies excessive drowsiness or sleepiness, denies suicidal ideation, and reports that the current pain medication is helping to control the pain ,and improve activity of daily living Patient denies any motor or sensory deficit , patient denies any fever or night sweats, denies any change in the bowel movements or urination Review of systems is negative for chest pain, shortness of breath, new onset weakness, numbness/tingling, abdominal pain, malaise, fever, night sweats, chills, homicidal or suicidal ideation, or bowel or bladder incontinence. Objective - Vital Signs Vital signs: Vital Signs Temp Pulse 97 03/13/19 11:55 Resp 16 03/13/19 11:55 BP 147/73 03/13/19 11:55 Pulse Ox 95 03/13/19 11:55 - Exam Physical Examinations : -Constitutiona : Cooperative , not in acute distress . -HEENT : nech : supple , no Lymphadenopathy , normal thyroid size . : eyes : no ptosis , no icterus, no photophobia . - neurologic : Cranial nerve II to XII intact , no focal neurological deffecit . -psychatric : alert , oriented X 3 , appropriate affect , intact judgment and insight . -Lymphatic : no Lymphadenopathy . - musculoskeltal : Lumber spine moter stegnth lower extremities ,thigh and legs 5/5 Right side , 5/5 Left side deep tendon reflexes : normal Knee Jerk , normal ankle Jerk lumber facet Loading Test =positive Right , positive Left Range of motion of the lumbar spine Flexion 30 degrees, extension 10 degrees strait leg raising test = positive at 30 degree Assessment and Plan Plan: Assessment and plan= chronic low back pain secondary to lumbar degenerative disc disease , lumbar spondylosis with lumbar facet arthropathy . Lumbar radiculopathy chronic and current use of high-risk medication (opioids) Patient denies any side effects of the current pain medication and the current treatment/medication helping the patient to do activity of daily living , Diagnoses, prognosis, treatment options, including but not limited to physical therapy, medication management, interventional therapies, and surgery, were discussed with the patient All the questions answered The narcotic consent was signed and patient agreed and understood the side effects and complications of opioid treatment. Patient signed the narcotic agreement, and was orally counseled, not to overuse, not to abuse, not to Divert , not tp sell pain medication, and to take it as prescribed only, Patient was counseled not to drive or operate heavy equipment while using narcotic medication, and advised not to use alcohol or any Illicit drugs while using the narcotis. understanding that lack of compliance with any of the above instructions, will likely to cause discharge from, the pain service, not to renew his narcotic prescriptions MAPS Reviwed and it was apropriate . Medication managements= patient will be given prescription refills for Freedom 7.5/325 every 12 hours when necessary, Motrin 800 mg. Discontinue Neurontin, patient reported that she had no benefit from Neurontin, , Time with Patient: Less than 30 PQRS Measure Charge Sheet Measure #130: Documentation of Current Meds in Medical Chart: Patient's medications documented in chart Measure #226: Tobacco Use: Screen & Cessation Intervention: Pt screened for tobacco use AND intervention given Measure #111: Pneumonia Vaccination: Pneumococcal vaccine administered or previously received Measure #47: Advance Care Plan: Advance care planning discussed & documented, pt chose/unable to give Measure #412: Opioid Treatment Agreement: Documented signed opioid trtmnt agreemnt min once during opioid trtmnt Measure #408: Opioid Therapy Follow-up Evaluation: Patient had f/u eval minimum every 3 months during opioid therapy Measure #317: Preventitive Care & Scrn High Bld Press & F/U: Pre-hypertensive or hypertensive BP documented, pt will f/u with PCP Measure #128: Body Mass Index (BMI) Screening & Follow-up: BMI documented ABOVE normal parameters - f/u documented Measure #131: Pain Assessment & Follow-up: Pain positive & plan documented, Follow-up scheduled Measure #431: Unhealthy Alcohol Use Preventative Care & Scrn: Patient not identified as an unhealthy alcohol user PQRS Narrative: Smoking Status Current some day smoker Narcotic Agreement Date Signed 09/27/18 Blood Pressure 147/73 Pain Intensity [Right Hip] 0 Scale Used Numeric (1 - 10) Hx Alcohol Use (MH) Yes: OCCASIONAL. Home Medications: Ambulatory Orders Aspirin 81 mg PO DAILY 08/11/13 Pantoprazole [Protonix] 40 mg PO QAM 08/12/15 cloNIDine HCL [Catapres] 0.1 mg PO BID 01/27/18 Losartan-Hctz 50-12.5 mg [Hyzaar 50-12.5] 1 tab PO DAILY 03/24/18 Citalopram Hydrobromide [CeleXA] 20 mg PO DAILY 04/06/18 HYDROcodone/APAP 7.5-325MG [Freedom 7.5-325] 1 tab PO Q12HR PRN 30 Days #30 tab 11/15/18 Ibuprofen [Motrin] 800 mg PO BID PRN #60 tab 11/15/18 Multivitamins, Thera [Multivitamin (formulary)] 1 tab PO DAILY 11/16/18 Vitamin B Complex 1 each PO DAILY 11/16/18 Gabapentin [Neurontin] 300 mg PO TID 02/02/19 Controlled Substance Measures - Controlled Substance Measures Is patient prescribed a controlled substance at discharge?: Yes When asked, does pt state using other controlled substances?: No If prescribed controlled substance>3 days was MAPS reviewed?: Yes If Rx opioid, was Start Talking consent form obtained?: Yes If opioid is for acute pain is fill amount 7 days or less?: No Was information provided regarding opioid addiction?: Yes
== END | disposition home or self-care (01) ==
LOC: PNWHC3 11:35
PROVIDERS: ATTEND Specialist
DX: G89.29 Other chronic pain (principal); M51.16 Intervertebral disc disorders with radiculopathy, lumbar region; M47.26 Other spondylosis with radiculopathy, lumbar region; M46.96 Unspecified inflammatory spondylopathy, lumbar region; F17.200 Nicotine dependence, unspecified, uncomplicated; Z79.891 Long term (current) use of opiate analgesic; Z79.82 Long term (current) use of aspirin; Z79.1 Long term (current) use of non-steroidal anti-inflammatories (NSAID); Z79.899 Other long term (current) drug therapy
CPT/HCPCS: 99211

== ENCOUNTER → 2019-05-16 | Outpatient (CLI) | payer OTHER ==
--- NOTE | 2019-05-16 14:51 | MM ---
Reason for exam: additional evaluation requested from prior study. Last mammogram was performed 1 year and 4 months ago. History: Patient is postmenopausal. Benign excisional biopsy of the left breast. Physical Findings: Nurse did not find any significant physical abnormalities on exam. MG 3D Diag Mammo W/Cad BESSIE Bilateral CC and MLO view(s) were taken. Prior study comparison: January 28, 2018, right breast MG 3d work up w/cad RT. January 12, 2018, bilateral MG 3d screening mammo w/cad. The breast tissue is heterogeneously dense. This may lower the sensitivity of mammography. There are benign appearing round calcifications bilaterally. There is no discrete abnormality. These results were verbally communicated with the patient and result sheet given to the patient on 05/16/19. ASSESSMENT: Benign, BI-RAD 2 RECOMMENDATION: Routine screening mammogram of both breasts in 1 year.
--- NOTE | 2019-05-16 14:53 | USB ---
Reason for exam: follow-up at short interval from prior study. History: Patient is postmenopausal. Benign excisional biopsy of the left breast. US Breast Limited RT Right limited breast ultrasound including focal area of concern, retroareolar and axilla demonstrates a 2 x 2 x 3mm oval, cystic lesion at 11 o'clock and a 3 x 2 x 2mm oval, cystic lesion at the axilla tail. Unchanged from previous. These results were verbally communicated with the patient and result sheet given to the patient on 05/16/19. ASSESSMENT: Benign, BI-RAD 2 RECOMMENDATION: Routine screening mammogram of both breasts in 1 year.
== END | disposition home or self-care (01) ==
LOC: RADMAMWWP 13:36
PROVIDERS: ATTEND Family Medicine
DX: N60.01 Solitary cyst of right breast (principal)
CPT/HCPCS: 77062; 77066

== ENCOUNTER → 2019-12-04 | Outpatient (CLI) | payer OTHER ==
--- NOTE | 2019-12-04 11:05 | XR ---
EXAMINATION TYPE: XR foot complete LT DATE OF EXAM: 12/04/2019 CLINICAL HISTORY: pain TECHNIQUE: Frontal, lateral and oblique images of the left foot are obtained. COMPARISON: None. FINDINGS: There is no acute fracture/dislocation evident. The joint spaces appear within normal william its. The overlying soft tissue appears unremarkable. IMPRESSION: There is no acute fracture or dislocation. ICD 10 NO FRACTURE, INITIAL EVALUATION
== END | disposition home or self-care (01) ==
LOC: RADXRMAIN 10:28
PROVIDERS: ATTEND Family Medicine
DX: S96.912D Strain of unspecified muscle and tendon at ankle and foot level, left foot, subsequent encounter (principal)

== ENCOUNTER → 2020-10-24 | Outpatient (CLI) | payer OTHER | END | disposition home or self-care (01) | LOC: LABWHC1 14:05 | PROVIDERS: ATTEND Family Medicine | DX: Z20.822 Contact with and (suspected) exposure to COVID-19 (principal) | CPT/HCPCS: U0003; C9803; U0005 ==

== ENCOUNTER → 2021-04-09 | Outpatient (CLI) | payer OTHER ==
--- NOTE | 2021-04-10 12:07 | MM ---
Reason for exam: screening (asymptomatic). Last mammogram was performed 1 year and 11 months ago. History: Patient is postmenopausal. Benign excisional biopsy of the left breast. Physical Findings: A clinical breast exam by your physician is recommended on an annual basis and results should be correlated with mammographic findings. MG 3D Screening Mammo W/Cad Bilateral CC and MLO view(s) were taken. Prior study comparison: May 16, 2019, bilateral MG 3d diag mammo w/cad BESSIE. January 28, 2018, right breast MG 3d work up w/cad RT. There are scattered fibroglandular densities. Finding #1: There is a 10 mm mass located 9 cm from the nipple in the upper outer quadrant, middle position of the left breast. Finding #2: There are typically benign round calcifications in both breasts. There is a chronic nodularity in the right breast. ASSESSMENT: Incomplete: need additional imaging evaluation, BI-RAD 0 RECOMMENDATION: Special view mammogram of the left breast. If lesion persists on supplemental views, image directed ultrasound is recommended. [facility] will attempt to contact patient to return for supplemental views and ultrasound if indicated.
== END | disposition home or self-care (01) ==
LOC: RADMAMWWP 09:42
PROVIDERS: ATTEND Family Medicine
DX: Z12.31 Encounter for screening mammogram for malignant neoplasm of breast (principal); Z78.0 Asymptomatic menopausal state
CPT/HCPCS: 77063; 77067

== ENCOUNTER → 2021-12-16 | Outpatient (CLI) | payer MEDICARE, OTHER ==
--- NOTE | 2021-12-16 09:48 | MM ---
Reason for Exam: Follow-up at short interval from prior study. Last screening mammogram was performed 8 month(s) ago. Patient History: Menarche at age 16. First Full-Term at age 25. Hysterectomy at age 39. Postmenopausal. 07/03/1989, Benign MG pre op needle loc LT - 2 on the left side. Benign Excisional Biopsy on the left side. Risk Values: Brittany 5 year model risk: 2.0%. NCI Lifetime model risk: 7.6%. Prior Study Comparison: 05/16/2019 Bilateral Diagnostic Mammogram, [facility]ED WITH [facility]. 04/09/2021 Bilateral Screening Mammogram, MERGED WITH [facility]. 04/15/2021 Left Diagnostic Mammogram, MERGED WITH [facility]. Tissue Density: Left: There are scattered fibroglandular densities. Findings: Analyzed By CAD. There are scattered benign round, punctate, and adenosis calcifications. Lateral nodularity remains unchanged for 6 months. No significant change from prior exam. Overall Assessment: Incomplete: need additional imaging evaluation, BI-RAD 0 Management: Diagnostic Breast Ultrasound of the left breast. Electronically signed and approved by: Shahida Santana M.D. Radiologist
--- NOTE | 2021-12-16 12:53 | USB ---
Reason for Exam: Follow-up at short interval from prior study. Patient History: Menarche at age 16. First Full-Term at age 25. Hysterectomy at age 39. Postmenopausal. 07/03/1989, Benign MG pre op needle loc LT - 2 on the left side. Benign Excisional Biopsy on the left side. Risk Values: Brittany 5 year model risk: 2.0%. NCI Lifetime model risk: 7.6%. Technique: Method: Targeted. Prior Study Comparison: 05/16/2019 Bilateral Diagnostic Mammogram, [facility]. 04/09/2021 Bilateral Screening Mammogram, [facility]. 04/15/2021 Left Diagnostic Mammogram, [facility]. 04/15/2021 Left Diagnostic Ultrasound, [facility]. Findings: The axilla of the left breast and the retroareolar of the left breast were scanned. Targeted ultrasound left breast 2:00 position at the site of previously seen abnormalities. At the 2:00 position, 3 cm from the nipple, there is a lobulated mixed lesion measuring 8 x 5 x 3 mm (versus 8 x 6 x 5 mm, previously). Some internal nodularity is suggested but the appearance is unchanged. Ongoing short interval follow-up recommended. At the 2:00 position, 8 cm from the nipple, there is a complex cyst versus cyst cluster measuring 10 x 9 x 6 mm (unchanged from prior exam). Ongoing short interval follow-up recommended. Overall Assessment: Probably benign, BI-RAD 3 Management: Diagnostic Mammogram of both breasts in 6 months. Diagnostic Breast Ultrasound of the left breast. Total one-year follow-up for the mammographic findings within the lateral left breast as well as the 2:00 left breast ultrasound findings. Annual exam of the right breast. Patient should continue monthly self breast exams. These results should not preclude additional follow-up of suspicious palpable abnormalities. Results were given to the patient verbally at the time of exam. Electronically signed and approved by: Shahida Santana M.D. Radiologist
== END | disposition home or self-care (01) ==
LOC: RADMAMWWP 09:02
PROVIDERS: ATTEND Family Medicine
DX: R92.8 Other abnormal and inconclusive findings on diagnostic imaging of breast (principal); N60.09 Solitary cyst of unspecified breast
CPT/HCPCS: 77065; 76642; G0279; 77061

== ENCOUNTER → 2022-04-01 | Day surgery (SDC) | payer MEDICARE, OTHER ==
[~2022-04-01] MED LIST changes: +LACTATED RINGERS 1,000 ML IV ONE; +LIDOCAINE 1% (10MG/ML) FOR IV START INTRADERMA ONE; +LIDOCAINE 2% INJ 20 MG/ML (2 ML VIAL) ONE; +PROPOFOL 10 MG/ML 20 ML VIAL IV ONE
[2022-04-01 08:11] VITALS: TEMP 98.2
--- NOTE | 2022-04-01 09:19 | P.PCN ---
Date of Procedure: 04/01/22 Procedure(s) Performed: Brief history: Patient is a pleasant 66-year-old white female scheduled for an elective upper endoscopy as well as colonoscopy as a part of evaluation of GERD/screening for colon cancer and family history of colon cancer. Her mother was diagnosed with colon cancer at age 60. Procedure performed: Esophagogastroduodenoscopy with biopsy Colonoscopy Preoperative diagnosis: GERD Screening for colon cancer and family history of colon cancer Anesthesia: MAC Procedure: After informed consent was obtained from the patient was brought into the endoscopy unit and IV sedation was administered by anesthesia under continuous monitoring. Initially upper endoscopy was done. The Olympus GF 160 video endoscope was inserted inserted into the mouth and esophagus intubated without any difficulty and was gradually advanced into the stomach and duodenum and carefully examined. The bulb and second part of the duodenum appeared normal. The scope was then withdrawn into the stomach adequately insufflated with air and upon careful examination the antrum had patchy areas of erosive gastritis that was biopsied. There were several small gastric polyps noted in the body the stomach which were also biopsied. Rest of the body, cardia and fundus appeared normal. The scope was then withdrawn into the esophagus. The GE junction was located at 40 cm to the incisors. It appeared regular with no erythema erosions or ulcerations. Rest of the esophagus appeared normal. Patient tolerated the procedure well. At this time the patient continued to remain sedation. Initial digital rectal examination was normal. Olympus CF 160 video colonoscope was then inserted into the rectum and gradually advanced to the sigmoid colon and further advancement was not possible. Hepatitic coloscopy was then introduced into the rectum and with gentle manner patient was able to advance the scope into the proximal sigmoid colon but at this point despite giving adequate pressure I was not able to safely advance the scope any further. At this time the procedure was terminated. Scattered sigmoidal reticulosis. Retroflexion was performed in the rectum and no lesions were noted. Patient tolerated the procedure well. Impression: 1. Upper endoscopy revealed mild antral gastritis, small gastric polyps but no evidence of esophagitis or Friedman's esophagus 2. Colonoscopy was incomplete up to the sigmoid colon and the scope couldn't be advanced further because of acute angulation in this area. Hence the procedure was terminated. Recommendations: Findings of this examination were discussed with the patient as well as her family. He was advised to follow with the biopsy results. She'll continue with her current medications and follow antireflux measures. Recommend barium enema to evaluate the rest of the colon.
[2022-04-01 09:41] VITALS: RESP 16
[2022-04-01 10:21] VITALS: BP 131/86; PULSE 62
--- NOTE | 2022-04-01 12:30 | FL ---
EXAMINATION TYPE: FL barium enema DATE OF EXAM: 04/01/2022 11:53 AM CLINICAL INDICATION:Female, 66 years old with history of incomplete colonoscopy; COMPARISON: None TECHNIQUE: The procedure was explained and patient history elicited. All patient questions were answ ered prior to beginning. Multiple spot fluoroscopic images of the colon were obtained after the recta l administration of liquid barium as the contrast agent. Multiple postprocedural overhead images, w ere obtained and reviewed. Fluoroscopic time: 25 seconds Fluoroscopic images: 0 Radiographs taken: 31 FINDINGS: The electronics parts sales representative abdominal radiograph demonstrates a normal bowel gas pattern without dilated loo ps of small or large bowel. There is no evidence for organomegaly or pneumoperitoneum. No abnormal calcifications. The visualized osseous structures are intact. Right total hip arthroplasty changes w ith hardware intact. The colon demonstrates normal course and contour without evidence of focal stricture, or internal ann marie ling defects. Views of the cecum with manual compression are unremarkable. Few scattered clonic diverticula. Postevacuation images are unremarkable. IMPRESSION: 1. No evidence for abnormal stricture or mass lesion within the sigmoid colon. 2. Minimal colonic diverticulosis.
== END ==
LOC: ORWHC2ENDO 07:33
PROVIDERS: ATTEND Internal Medicine Gastroenterology
DX: Z12.11 Encounter for screening for malignant neoplasm of colon (principal); K29.50 Unspecified chronic gastritis without bleeding; K31.7 Polyp of stomach and duodenum; K21.9 Gastro-esophageal reflux disease without esophagitis; K57.30 Diverticulosis of large intestine without perforation or abscess without bleeding; I10 Essential (primary) hypertension; J44.9 Chronic obstructive pulmonary disease, unspecified; G47.33 Obstructive sleep apnea (adult) (pediatric); F17.200 Nicotine dependence, unspecified, uncomplicated; M19.90 Unspecified osteoarthritis, unspecified site; Z79.899 Other long term (current) drug therapy; Z99.89 Dependence on other enabling machines and devices; Z98.890 Other specified postprocedural states
CPT/HCPCS: 88305; 74270; 43239; J2704; J2001; G0121

== ENCOUNTER → 2022-06-10 | Outpatient (CLI) | payer MEDICARE, OTHER ==
--- NOTE | 2022-06-10 14:37 | MM ---
Reason for Exam: Additional evaluation requested from prior study. Last mammogram was performed 1 year(s) and 2 month(s) ago. Patient History: Menarche at age 16. First Full-Term at age 25. Hysterectomy at age 39. Postmenopausal. 07/03/1989, Benign MG pre op needle loc LT - 2 on the left side. Benign Excisional Biopsy on the left side. Risk Values: Brittany 5 year model risk: 2.0%. NCI Lifetime model risk: 7.6%. Prior Study Comparison: 07/17/2016 Bilateral Screening Mammogram, [facility]. 01/12/2018 Bilateral Screening Mammogram, [facility]. 01/28/2018 Right Diagnostic Mammogram, [facility]. 01/28/2018 Right Diagnostic Ultrasound, [facility]. 09/08/2018 Right Diagnostic Ultrasound, [facility]. 05/16/2019 Bilateral Diagnostic Mammogram, [facility]. 05/16/2019 Right Diagnostic Ultrasound, [facility]. 04/09/2021 Bilateral Screening Mammogram, [facility]. 04/15/2021 Left Diagnostic Mammogram, [facility]. 04/15/2021 Left Diagnostic Ultrasound, [facility]. 12/16/2021 Left MG 3D diag mammo w/cad LT, [facility]. 12/16/2021 Left US breast limited LT, [facility]. Tissue Density: There are scattered fibroglandular densities. Findings: Analyzed By CAD. Scattered benign calcifications within both breasts. Lateral nodularity within the left breast remains unchanged. No new suspicious masses. No new suspicious calcifications within either breast. Overall Assessment: Incomplete: need additional imaging evaluation, BI-RAD 0 Management: Diagnostic Breast Ultrasound of the left breast. A clinical breast exam by your physician is recommended on an annual basis and results should be correlated with mammographic findings. This exam should not preclude additional follow-up of suspicious palpable abnormalities. Results were given to the patient verbally at the time of exam. Electronically signed and approved by: Niels Montes D.O.
--- NOTE | 2022-06-10 14:41 | USB ---
Reason for Exam: Follow-up at short interval from prior study. Patient History: Menarche at age 16. First Full-Term at age 25. Hysterectomy at age 39. Postmenopausal. 07/03/1989, Benign MG pre op needle loc LT - 2 on the left side. Benign Excisional Biopsy on the left side. Risk Values: Brittany 5 year model risk: 2.0%. NCI Lifetime model risk: 7.6%. Technique: Method: Targeted. Prior Study Comparison: 04/09/2021 Bilateral Screening Mammogram, [facility]. 04/15/2021 Left Diagnostic Mammogram, [facility]. 12/16/2021 Left MG 3D diag mammo w/cad LT, [facility]. Findings: The upper section of the breast of the left breast, the axilla of the left breast and the retroareolar of the left breast were scanned. Targeted ultrasound of the left breast at 2:00 at site of previous abnormalities with additional evaluation of the nipple and axilla was performed. At the 2:00 position, 3 cm from nipple, there is a lobulated mixed lesion redemonstrated measuring 0.7 x 0.3 x 0.6 cm. Previously measured 0.8 x 0.5 x 0.3 cm. No internal color flow identified. This is stable from prior examination. Internal nodularity again suggested and unchanged. At the 2:00 position, 8 cm from the nipple, there is a complex cyst versus cyst cluster measuring 0.8 x 0.4 x 0.6 cm without internal color flow. This is unchanged from prior examination. These are considered benign due to stability. Overall Assessment: Benign, BI-RAD 2 Management: Screening Mammogram of both breasts in 1 year. A clinical breast exam by your physician is recommended on an annual basis and results should be correlated with mammographic findings. This exam should not preclude additional follow-up of suspicious palpable abnormalities. Results were given to the patient verbally at the time of exam. Electronically signed and approved by: Niels Montes D.O.
== END | disposition home or self-care (01) ==
LOC: RADMAMWWP 07:31
PROVIDERS: ATTEND Family Medicine
DX: N60.02 Solitary cyst of left breast (principal); R10.11 Right upper quadrant pain; Z78.0 Asymptomatic menopausal state
CPT/HCPCS: 77066; 76642; G0279; 77062

== ENCOUNTER → 2024-03-28 | Outpatient (CLI) | payer MEDICARE ==
--- NOTE | 2024-03-28 10:28 | FL ---
EXAMINATION TYPE: FL barium swallow DATE OF EXAM: 03/28/2024 9:52 AM COMPARISON: Chest radiograph from same day. CLINICAL INDICATION:Female, 68 years old with history of R09.89 other specified symptoms; [facility], TECHNIQUE: The procedure was explained and patient history elicited. All patient questions were ans wered prior to start of procedure. Multiple spot fluoroscopic images of the esophagus were obtained a fter the oral ingestion of effervescent crystals and liquid barium as the contrast agent. Fluoroscopic time:19 sec Fluoroscopic images:0 Radiographs taken: 114 DAP: NOT REPORTED [id number] FINDINGS: The esophagus demonstrates normal primary and secondary peristalsis. Tertiary contractions are seen w ith delayed emptying of the esophageal contents. The esophageal mucosa is smooth without evidence of focal stricture, ulceration, or abnormal outpouching. No gastroesophageal reflux disease was identif ied. Postsurgical changes to the lower Neck hardware appears intact. IMPRESSION: Esophageal dysmotility. [facility], , 03/28/2024 10:26 AM
== END | disposition home or self-care (01) ==
LOC: RADFLMAIN 08:39
PROVIDERS: ATTEND Family Medicine
DX: K22.4 Dyskinesia of esophagus (principal); R09.89 Other specified symptoms and signs involving the circulatory and respiratory systems
CPT/HCPCS: 74220

== ENCOUNTER 2024-05-19 06:50 | Day surgery (SDC) | payer MEDICARE ==
[~2024-05-19 06:50] MED LIST changes: -LACTATED RINGERS 1,000 ML IV ONE; -LACTATED RINGERS 1,000 ML IV SCH; -LIDOCAINE 1% (10MG/ML) FOR IV START INTRADERMA ONE; +LIDOCAINE 1% (10MG/ML) FOR IV START INTRADERMA PRN; -LIDOCAINE 2% INJ 20 MG/ML (2 ML VIAL) ONE; -PROPOFOL 10 MG/ML 20 ML VIAL IV ONE
[2024-05-19 07:26] VITALS: TEMP 96.9
[2024-05-19] MEDS: IV FLUID CONTINUATION 1,000 ML IV ONE (07:30)
[2024-05-19] MEDS: LACTATED RINGERS 1,000 ML IV SCH (07:30)
[2024-05-19] MEDS ORDERED: LIDOCAINE 1% INJ 10MG/ML (20 ML MDV) ONE (07:46)
[2024-05-19] MEDS ORDERED: PROPOFOL 10 MG/ML 20 ML VIAL IV ONE (07:46)
[2024-05-19] MEDS: LACTATED RINGERS 1,000 ML IV ONE (07:47)
--- NOTE | 2024-05-19 07:57 | P.PCN ---
Date of Procedure: 05/19/24 Procedure(s) Performed: BRIEF HISTORY: Patient is a 68-year-old, pleasant, white female scheduled an upper endoscopy as a part evaluation of longstanding history of GERD and intermittent dysphagia to solids.. PROCEDURE PERFORMED: Esophagogastroduodenoscopy with biopsy. PREOPERATIVE DIAGNOSIS: Longstanding history of GERD and intermittent dysphagia to solids. IV sedation per anesthesia. PROCEDURE: After informed consent was obtained, the patient was brought into the endoscopy unit. IV sedation was administered by Anesthesia under continuous monitoring. Initially the Olympus GIF-140 video endoscope was inserted into the mouth. Esophagus intubated without any difficulty. It was gradually advanced into the stomach and duodenum and carefully examined. The bulb and the second part of the duodenum appeared normal. The scope at this time was withdrawn to the stomach, adequately insufflated with air, and upon careful examination, mucosa of the antrum, had patchy areas of erythema consistent with gastritis and biopsies were done for this area. Mucosa of the body, cardia and the fundus appeared normal. The scope was then withdrawn into the esophagus. Small sliding-type hiatal hernia noted the GE junction was located at 39 cm from the incisors. The esophagus appeared normal. There were no erosions or ulcerations seen. No evidence of esophageal stricture. Biopsies were done from the distal esophagus and the patient tolerated the procedure well. IMPRESSION: 1. Small hiatal hernia. 2. No evidence of esophageal stricture 3. Mild antral gastritis RECOMMENDATIONS: The findings of this examination were discussed with the patient as well as her family. She was advised to follow-up with the biopsy results. Continue with Protonix 40 mg daily and follow antireflux measures..
[2024-05-19 08:19] VITALS: BP 141/78; PULSE 69; RESP 18
== END 2024-05-19 08:31 | disposition home or self-care (01) ==
LOC: ORWHC2ENDO 06:50
PROVIDERS: ATTEND Internal Medicine Gastroenterology
DX: K29.50 Unspecified chronic gastritis without bleeding (principal); K21.00 Gastro-esophageal reflux disease with esophagitis, without bleeding; K44.9 Diaphragmatic hernia without obstruction or gangrene; I10 Essential (primary) hypertension; J44.9 Chronic obstructive pulmonary disease, unspecified; F17.210 Nicotine dependence, cigarettes, uncomplicated; F32.A Depression, unspecified; G47.33 Obstructive sleep apnea (adult) (pediatric); M54.50 Low back pain, unspecified; Z79.82 Long term (current) use of aspirin; Z79.899 Other long term (current) drug therapy
CPT/HCPCS: 43239; J2003; J2704; 88305